=== PATIENT | female | born 1960 | race Caucasian/White ===

== ENCOUNTER 2021-11-17 13:11 | Inpatient (IN) | payer OTHER ==
[2021-11-17 13:30] LABS: Glucose,Whole Blood 127 mg/dL (75-99)
[2021-11-17] MEDS ORDERED: SODIUM CHLORIDE 0.9% 1,000 ML IV STA ×2 (13:57→14:54)
[2021-11-17] MEDS ORDERED: SODIUM CHLORIDE 0.9% 500 ML 500 ML IV ONE (13:57)
--- NOTE | 2021-11-17 14:24 | ED ---
Altered Mental Status HPI - General Chief Complaint: Altered Mental Status Stated Complaint: Dehydration Time Seen by Provider: 11/17/21 13:11 Source: patient, EMS, RN notes reviewed Mode of arrival: EMS Limitations: altered mental status - History of Present Illness Initial Comments: 7-year-old female with history of hypertension history of low back problems who uses a walker who apparently has had a relatively rapid decline in her health the last couple months she used to work and maintain herself she called a neighbor today because she was too weak and could not get up she's had weight loss decreased oral intake dizziness confusion. She apparently was found to be in a very cluttered environment. No reports of fall no fevers chills nausea vo miting sweats at this time there is dizziness reported. MD Complaint: altered mental status, decreased responsiveness - Related Data Home Medications Medication Instructions Recorded Confirmed Unable To Assess [Unable to Assess] 11/17/21 11/17/21 Allergies Allergy/AdvReac Type Severity Reaction Status Date / Time No Known Allergies Allergy Verified 11/17/21 15:00 Review of Systems ROS Statement: Those systems with pertinent positive or pertinent negative responses have been documented in the HPI. ROS Other: All systems not noted in ROS Statement are negative. Past Medical History Past Medical History: Hypertension History of Any Multi-Drug Resistant Organisms: None Reported Past Surgical History: Unable to Obtain Past Psychological History: Anxiety, Depression Smoking Status: Former smoker Past Alcohol Use History: Occasional Past Drug Use History: None Reported General Exam - General Exam Comments Initial Comments: Physical well-developed asthenic appearing female who is awake alert somewhat Limitations: altered mental status General appearance: alert, in no apparent distress Head exam: Present: atraumatic, normocephalic, normal inspection Eye exam: Present: normal appearance, PERRL, EOMI. Absent: scleral icterus, conjunctival injection, periorbital swelling ENT exam: Present: mucous membranes dry Neck exam: Present: normal inspection, full ROM, other (No surgery or bruits). Absent: tenderness, meningismus, lymphadenopathy Respiratory exam: Present: normal lung sounds bilaterally. Absent: respiratory distress, wheezes, rales, rhonchi, stridor Cardiovascular Exam: Present: normal rhythm, tachycardia, normal heart sounds. Absent: systolic murmur, diastolic murmur, rubs, gallop, clicks GI/Abdominal exam: Present: soft, normal bowel sounds. Absent: distended, tenderness, guarding, rebound, rigid Extremities exam: Present: normal inspection, full ROM, normal capillary refill. Absent: tenderness, pedal edema, joint swelling, calf tenderness Back exam: Present: normal inspection Neurological exam: Present: alert, oriented X3, CN II-XII intact Psychiatric exam: Present: flat affect Skin exam: Present: warm, dry, intact, normal color. Absent: rash Course Vital Signs 11/17/21 11/17/21 11/17/21 13:14 14:53 16:00 Temperature 98.1 F Pulse Rate 106 H 121 H 97 Respiratory 16 18 18 Rate Blood Pressure 137/94 100/72 92/79 O2 Sat by Pulse 100 100 97 Oximetry - Reevaluation(s) Reevaluation #1: 11/17/21 17:57 Age does have evidence of sepsis secondary to urinary tract infection dehydration she however is not been hypotensive. She remains awake alert no confused no chest pain lung sounds were diminished but clear at the soft nontender Medical Decision Making - Medical Decision Making I did discuss findings with the patient also with Dr. Babcock - Lab Data Result diagrams: 11/17/21 14:53 11/17/21 14:56 Lab Results 11/17/21 11/17/21 11/17/21 Range/Units 13:28 13:57 14:50 WBC (3.8-10.6) k/uL RBC (3.80-5.40) m/uL Hgb (11.4-16.0) gm/dL Hct (34.0-46.0) % MCV (80.0-100.0) fL MCH (25.0-35.0) pg MCHC (31.0-37.0) g/dL RDW (11.5-15.5) % Plt Count (150-450) k/uL MPV Neutrophils % % Lymphocytes % % Monocytes % % Eosinophils % % Basophils % % Neutrophils # (1.3-7.7) k/uL Lymphocytes # (1.0-4.8) k/uL Monocytes # (0-1.0) k/uL Eosinophils # (0-0.7) k/uL Basophils # (0-0.2) k/uL Manual Slide Review Poikilocytosis (manual Anisocytosis Macrocytosis PT (9.0-12.0) sec INR (<1.2) APTT (22.0-30.0) sec Sodium (137-145) mmol/L Potassium (3.5-5.1) mmol/L Chloride (98-107) mmol/L Carbon Dioxide (22-30) mmol/L Anion Gap mmol/L BUN (7-17) mg/dL Creatinine (0.52-1.04) mg/dL Est GFR (CKD-EPI)AfAm (>60 ml/min/1.73 sqM) Est GFR (CKD-EPI)NonAf (>60 ml/min/1.73 sqM) Glucose (74-99) mg/dL POC Glucose (mg/dL) 127 H (75-99) mg/dL POC Glu [employer]or ID Nadya Martinez Lactic Ac Sepsis Rflx Plasma Lactic Acid Mina (0.7-2.0) mmol/L Calcium (8.4-10.2) mg/dL Total Bilirubin (0.2-1.3) mg/dL AST (14-36) U/L ALT (4-34) U/L Alkaline Phosphatase (38-126) U/L Ammonia (<30) umol/L Creatine Kinase (30-135) U/L Troponin I (0.000-0.034) ng/mL Total Protein (6.3-8.2) g/dL Albumin (3.5-5.0) g/dL TSH (0.465-4.680) mIU/L Urine Color [place] Urine Appearance Cloudy H (Clear) Urine pH 6.0 (5.0-8.0) Ur Specific [place] 1.019 (1.001-1.035) Urine Protein 1+ H (Negative) Urine Glucose (UA) Negative (Negative) Urine Ketones 1+ H (Negative) Urine Blood Negative (Negative) Urine Nitrite Negative (Negative) Urine Bilirubin 1+ H (Negative) Urine Urobilinogen 12.0 (<2.0) mg/dL Ur Leukocyte Esterase Large H (Negative) Urine RBC 1 (0-5) /hpf Urine WBC 59 H (0-5) /hpf Ur Squamous Epith Cells 1 (0-4) /hpf Urine Bacteria Many H (None) /hpf Urine Mucus Rare H (None) /hpf Urine Opiates Screen Not Detected (NotDetected) Ur Oxycodone Screen Not Detected (NotDetected) Urine Methadone Screen Not Detected (NotDetected) Ur Propoxyphene Screen Not Detected (NotDetected) Ur Barbiturates Screen Not Detected (NotDetected) U Tricyclic Antidepress Not Detected (NotDetected) Ur Phencyclidine Scrn Not Detected (NotDetected) Ur Amphetamines Screen Not Detected (NotDetected) U Methamphetamines Scrn Not Detected (NotDetected) U Benzodiazepines Scrn Not Detected (NotDetected) Urine Cocaine Screen Not Detected (NotDetected) U Marijuana (THC) Screen Not Detected (NotDetected) Serum Alcohol mg/dL Influenza Type A (PCR) Not Detected (Not Detectd) Influenza Type B (PCR) Not Detected (Not Detectd) RSV (PCR) Not Detected (Not Detectd) SARS-CoV-2 (PCR) Not Detected (Not Detectd) 11/17/21 11/17/21 11/17/21 Range/Units 14:53 14:53 14:53 WBC 20.5 H (3.8-10.6) k/uL RBC 3.42 L (3.80-5.40) m/uL Hgb 13.8 (11.4-16.0) gm/dL Hct 41.2 (34.0-46.0) % MCV 120.4 H (80.0-100.0) fL MCH 40.3 H (25.0-35.0) pg MCHC 33.5 (31.0-37.0) g/dL RDW 17.8 H (11.5-15.5) % Plt Count 357 (150-450) k/uL MPV 7.4 Neutrophils % 89 % Lymphocytes % 6 % Monocytes % 4 % Eosinophils % 1 % Basophils % 0 % Neutrophils # 18.2 H (1.3-7.7) k/uL Lymphocytes # 1.1 (1.0-4.8) k/uL Monocytes # 0.8 (0-1.0) k/uL Eosinophils # 0.1 (0-0.7) k/uL Basophils # 0.0 (0-0.2) k/uL Manual Slide Review Performed Poikilocytosis (manual Present Anisocytosis Slight Macrocytosis Marked A PT 12.3 H (9.0-12.0) sec INR 1.2 H (<1.2) APTT 24.4 (22.0-30.0) sec Sodium (137-145) mmol/L Potassium (3.5-5.1) mmol/L Chloride (98-107) mmol/L Carbon Dioxide (22-30) mmol/L Anion Gap mmol/L BUN (7-17) mg/dL Creatinine (0.52-1.04) mg/dL Est GFR (CKD-EPI)AfAm (>60 ml/min/1.73 sqM) Est GFR (CKD-EPI)NonAf (>60 ml/min/1.73 sqM) Glucose (74-99) mg/dL POC Glucose (mg/dL) (75-99) mg/dL POC Glu [employer]or ID Lactic Ac Sepsis Rflx Plasma Lactic Acid Mina (0.7-2.0) mmol/L Calcium (8.4-10.2) mg/dL Total Bilirubin (0.2-1.3) mg/dL AST (14-36) U/L ALT (4-34) U/L Alkaline Phosphatase (38-126) U/L Ammonia (<30) umol/L Creatine Kinase (30-135) U/L Troponin I 0.022 (0.000-0.034) ng/mL Total Protein (6.3-8.2) g/dL Albumin (3.5-5.0) g/dL TSH (0.465-4.680) mIU/L Urine Color Urine Appearance (Clear) Urine pH (5.0-8.0) Ur Specific [place] (1.001-1.035) Urine Protein (Negative) Urine Glucose (UA) (Negative) Urine Ketones (Negative) Urine Blood (Negative) Urine Nitrite (Negative) Urine Bilirubin (Negative) Urine Urobilinogen (<2.0) mg/dL Ur Leukocyte Esterase (Negative) Urine RBC (0-5) /hpf Urine WBC (0-5) /hpf Ur Squamous Epith Cells (0-4) /hpf Urine Bacteria (None) /hpf Urine Mucus (None) /hpf Urine Opiates Screen (NotDetected) Ur Oxycodone Screen (NotDetected) Urine Methadone Screen (NotDetected) Ur Propoxyphene Screen (NotDetected) Ur Barbiturates Screen (NotDetected) U Tricyclic Antidepress (NotDetected) Ur Phencyclidine Scrn (NotDetected) Ur Amphetamines Screen (NotDetected) U Methamphetamines Scrn (NotDetected) U Benzodiazepines Scrn (NotDetected) Urine Cocaine Screen (NotDetected) U Marijuana (THC) Screen (NotDetected) Serum Alcohol mg/dL Influenza Type A (PCR) (Not Detectd) Influenza Type B (PCR) (Not Detectd) RSV (PCR) (Not Detectd) SARS-CoV-2 (PCR) (Not Detectd) 11/17/21 11/17/21 11/17/21 Range/Units 14:56 14:56 15:36 WBC (3.8-10.6) k/uL RBC (3.80-5.40) m/uL Hgb (11.4-16.0) gm/dL Hct (34.0-46.0) % MCV (80.0-100.0) fL MCH (25.0-35.0) pg MCHC (31.0-37.0) g/dL RDW (11.5-15.5) % Plt Count (150-450) k/uL MPV Neutrophils % % Lymphocytes % % Monocytes % % Eosinophils % % Basophils % % Neutrophils # (1.3-7.7) k/uL Lymphocytes # (1.0-4.8) k/uL Monocytes # (0-1.0) k/uL Eosinophils # (0-0.7) k/uL Basophils # (0-0.2) k/uL Manual Slide Review Poikilocytosis (manual Anisocytosis Macrocytosis PT (9.0-12.0) sec INR (<1.2) APTT (22.0-30.0) sec Sodium 144 (137-145) mmol/L Potassium 3.0 L (3.5-5.1) mmol/L Chloride 106 (98-107) mmol/L Carbon Dioxide 15 L (22-30) mmol/L Anion Gap 23 mmol/L BUN 24 H (7-17) mg/dL Creatinine 0.87 (0.52-1.04) mg/dL Est GFR (CKD-EPI)AfAm 84 (>60 ml/min/1.73 sqM) Est GFR (CKD-EPI)NonAf 73 (>60 ml/min/1.73 sqM) Glucose 125 H (74-99) mg/dL POC Glucose (mg/dL) (75-99) mg/dL POC Glu [employer]or ID Lactic Ac Sepsis Rflx Y Plasma Lactic Acid Mina 4.8 H* (0.7-2.0) mmol/L Calcium 9.0 (8.4-10.2) mg/dL Total Bilirubin 2.8 H (0.2-1.3) mg/dL AST 55 H (14-36) U/L ALT 33 (4-34) U/L Alkaline Phosphatase 115 (38-126) U/L Ammonia <9 (<30) umol/L Creatine Kinase 41 (30-135) U/L Troponin I (0.000-0.034) ng/mL Total Protein 7.9 (6.3-8.2) g/dL Albumin 4.0 (3.5-5.0) g/dL TSH 1.600 (0.465-4.680) mIU/L Urine Color Urine Appearance (Clear) Urine pH (5.0-8.0) Ur Specific [place] (1.001-1.035) Urine Protein (Negative) Urine Glucose (UA) (Negative) Urine Ketones (Negative) Urine Blood (Negative) Urine Nitrite (Negative) Urine Bilirubin (Negative) Urine Urobilinogen (<2.0) mg/dL Ur Leukocyte Esterase (Negative) Urine RBC (0-5) /hpf Urine WBC (0-5) /hpf Ur Squamous Epith Cells (0-4) /hpf Urine Bacteria (None) /hpf Urine Mucus (None) /hpf Urine Opiates Screen (NotDetected) Ur Oxycodone Screen (NotDetected) Urine Methadone Screen (NotDetected) Ur Propoxyphene Screen (NotDetected) Ur Barbiturates Screen (NotDetected) U Tricyclic Antidepress (NotDetected) Ur Phencyclidine Scrn (NotDetected) Ur Amphetamines Screen (NotDetected) U Methamphetamines Scrn (NotDetected) U Benzodiazepines Scrn (NotDetected) Urine Cocaine Screen (NotDetected) U Marijuana (THC) Screen (NotDetected) Serum Alcohol <10 mg/dL Influenza Type A (PCR) (Not Detectd) Influenza Type B (PCR) (Not Detectd) RSV (PCR) (Not Detectd) SARS-CoV-2 (PCR) (Not Detectd) - EKG Data -: EKG Interpreted by Me EKG shows normal: sinus rhythm EKG Comments: Sinus rhythm 111 CA interval 148 QRS duration 81 QT since QTC 370/435 nonspecific inferior changes no definitive ST-T wave changes wheezing completely report - Radiology Data Radiology results: report reviewed (Imaging reviewed no acute findings.), image reviewed Disposition Clinical Impression: Altered mental status, Delirium due to general medical condition, Urinary tract infection, Lactic acidosis, Sepsis, Failure to thrive, Leukocytosis Disposition: ADMITTED IP TO THIS HOSP Condition: Fair Referrals: None,Stated [Primary Care Provider] - 1-2 days
[2021-11-17 14:52] LABS: Appearance,Urine Cloudy (Clear); Bacteria,Urine Many /hpf; Bilirubin,Urine 1+ (Negative); Blood,Urine Negative (Negative); Color,Urine Orange; Glucose,Urine (UA) Negative (Negative); Ketones,Urine 1+ (Negative); Leukocyte Esterase,Urine Large (Negative); Mucus,Urine Rare /hpf; Nitrite,Urine Negative (Negative); Protein,Urine 1+ (Negative); RBC,Urine 1 /hpf (0-5); Specific Gravity,Urine 1.019 (1.001-1.035); Squamous Epithelial Cell,Urine 1 /hpf (0-4); WBC,Urine 59 /hpf (0-5)
[2021-11-17 15:00] LABS: Amphetamine Screen,Urine Not Detected (NotDetected); Barbiturate Screen,Urine Not Detected (NotDetected); Benzodiazepines Screen,Urine Not Detected (NotDetected); Cocaine Screen,Urine Not Detected (NotDetected); Methadone Screen, Urine Not Detected (NotDetected); Opiate Screen,Urine Not Detected (NotDetected); Oxycodone Screen, Urine Not Detected (NotDetected); Phencyclidine Screen,Urine Not Detected (NotDetected); Tricyclic Antidepressant,Urine Not Detected (NotDetected); Urn Cannabinoid Scrn Not Detected (NotDetected)
[2021-11-17 15:16] LABS: Anisocytosis Slight; Basophils % (A) 0 %; Eosinophils # (A) 0.1 k/uL (0-0.7); Eosinophils % (A) 1 %; HCT 41.2 % (34.0-46.0); HGB 13.8 gm/dL (11.4-16.0); Lymphocytes # (A) 1.1 k/uL (1.0-4.8); Lymphocytes % (A) 6 %; MCH 40.3 pg (25.0-35.0); MCHC 33.5 g/dL (31.0-37.0); MCV 120.4 fL (80.0-100.0); Macrocytosis Marked; Mean Platelet Volume 7.4; Monocytes # (A) 0.8 k/uL (0-1.0); Monocytes % (A) 4 %; Neutrophils # (A) 18.2 k/uL (1.3-7.7); Neutrophils % (A) 89 %; Platelet Count 357 k/uL (150-450); RBC 3.42 m/uL (3.80-5.40); RDW 17.8 % (11.5-15.5); WBC 20.5 k/uL (3.8-10.6)
[2021-11-17 15:29] LABS: INR 1.2 (<1.2); Partial Thromboplastin Time 24.4 sec (22.0-30.0); Prothrombin Time 12.3 sec (9.0-12.0)
[2021-11-17 15:32] LABS: ALT 33 U/L (4-34); AST 55 U/L (14-36); African American GFR (CKD) 84 (>60 ml/min/1.73 sqM); Alcohol <10 mg/dL; Alkaline Phosphatase 115 U/L (38-126); Anion Gap 23 mmol/L; Blood Urea Nitrogen 24 mg/dL (7-17); Carbon Dioxide 15 mmol/L (22-30); Chloride 106 mmol/L (98-107); Creatine Kinase 41 U/L (30-135); Glucose 125 mg/dL (74-99); Non-African American GFR(CKD) 73 (>60 ml/min/1.73 sqM); Sodium 144 mmol/L (137-145); Total Bilirubin 2.8 mg/dL (0.2-1.3); Total Protein 7.9 g/dL (6.3-8.2)
--- NOTE | 2021-11-17 15:34 | CT ---
EXAMINATION TYPE: CT brain wo con DATE OF EXAM: 11/17/2021 HISTORY: ams and weakness. CT DLP: 1114.4 mGycm. Automated Exposure Control for Dose Reduction was Utilized. TECHNIQUE: CT scan of the head is performed without contrast. COMPARISON: None. FINDINGS: There is no acute intracranial hemorrhage or midline shift identified. There is mild to m oderate diffuse ventricular and sulcal prominence consistent with diffuse age-related cerebral atroph y. There is mild to moderate low-attenuation in the periventricular white matter consistent with chr onic small vessel ischemic change. The globes are intact and the visualized sinuses are clear. IMPRESSION: No acute intracranial hemorrhage or midline shift. There is mild to moderate diffuse ag e-related cerebral atrophy and chronic small vessel ischemic change noted.
[2021-11-17 15:36] LABS: Lactic Acid, Venous 4.8 mmol/L (0.7-2.0)
--- NOTE | 2021-11-17 15:44 | XR ---
EXAMINATION TYPE: XR chest 2V DATE OF EXAM: 11/17/2021 COMPARISON: None HISTORY: Mental status change TECHNIQUE: Frontal and lateral views of the chest are obtained. FINDINGS: There is no focal air space opacity, pleural effusion, or pneumothorax seen. The cardiac silhouette size is within normal limits. The osseous structures are intact. IMPRESSION: No acute cardiopulmonary process.
[2021-11-17] MEDS ORDERED: cefTRIAXone IN SWFI 1,000 MG/10 ML SYRINGE IVP STA (16:07)
[2021-11-17 16:28] LABS: Poikilocytosis (M) Present
[2021-11-17] MEDS ORDERED: NALOXONE 0.4 MG/ML 1 ML VIAL IV PRN (17:59)
[2021-11-17] MEDS ORDERED: POTASSIUM CHLORIDE 20 MEQ in WATER FOR INJECTION 1 100ML.BAG IVPB STA (18:01)
[2021-11-17] MEDS ORDERED: ONDANSETRON 4 MG/2 ML VIAL IVP PRN (18:29)
[2021-11-17] MEDS ORDERED: MELATONIN 3 MG TABLET PO PRN (18:29)
[2021-11-17] MEDS ORDERED: HYDROcodone/APAP 5-325MG 1 EACH TAB PO PRN (18:29)
--- NOTE | 2021-11-17 18:29 | P.HPIM ---
History of Present Illness H&P Date: 11/17/21 Chief Complaint: Sepsis Patient is a 61-year-old female with an uncertain past medical history was brought in by EMS for altered mentation. In the ER she underwent an extensive evaluation. On arrival she was tachycardic with a pulse of 106. White blood cell count 20.5, potassium 3, lactic acid 4.8, bilirubin 2.8, AST 55, anion gap 23 with a carbon dioxide of 15. Urinalysis was cloudy with 59 white blood cells. Influenza, RSV, and COVID-19 testing was negative. Urine drug screen and serum alcohol is negative. CT head shows no acute intracranial hemorrhage or midline shift with mild to moderate diffuse age-related cerebral atrophy. Chest x-ray revealed no acute process. She was started on Rocephin for possible urinary tract infection as well as IV fluids. Patient seen and examined at bedside. She is alert to self. She is aware that she cannot think and is having problems processing. She states that she hurt her hand at work but is unsure what he had before when it occurred. She has been taking pain pills that she is unsure which kind. She is unsure of her medical history but does know she had 2 C-sections. She thinks she may be ALLERGIC to something in the distant past but is unsure what. She did not remember coming in EMS. She thought she walked over from her work. 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 States that she used to drink but quit a couple of years ago. Unable to obtain review of systems secondary altered mentation. General: non toxic, no distress, appears older than stated age, cachectic, temporal and buccal wasting, malodorous Derm: Errythema wuitcreciptus of coccyx and to the right, ecchymosis of left elbow, mottling of bilateral upper extremities Head: atraumatic, normocephalic, symmetric Eyes: EOMI, no lid lag, anicteric sclera, pupils equal round reactive to light ENT: Nose and ears atraumatic, no thrush, no pharyngeal erythema Neck: No thyromegaly, no cervical lymphadenopathy, trachea midline, supple Mouth: no lip lesion, mucus membranes moist Cardiovascular: S1S2 reg, no murmur, positive posterior tibial pulse bilateral, no edema, capillary refill less than 2 seconds Lungs: Coarse breath sounds bilateral, no ronchi, no rales, no wheeze, no accessory muscle use Abdominal: soft, nontender to palpation, no guarding, no appreciable organomegaly, normal bowel sounds Ext: no gross muscle atrophy, muscle strength muscle strength 5 out of 5 in all 4 extremities, no contractures Neuro: CN II-XI grossly intact, light touch intact all 4 extremities, finger to nose within normal limits, Psych: Alert, oriented to self only, appropriate affect Assessment/plan: Severe Sepsis Possible urinary tract infection Stage II pressure ulcer of the coccyx, with drainage and surrounding cellulitis Dehydration - IVF - broaded to zosyn and vanvo - stat ct pelvis with concerns of crepitus - blooc culture and wound cultures pending Hypokalemia - replace and recheck in AM Transaminitis - CT abd and pelvis - repeat labs in AM Acute toxic encephalopathy - undetermined etiology - supportive care - treatment of sepsis The patient is admitted with an anticipated greater than 2 midnight stay for evaluation of sepsis and altered mentation. Surrogate decision-maker: Son-- ED nursing unable to get ahold CODE STATUS: full by default DVT prophylaxis: Lovenox Discussed with: patient, nursing unable to get ahold of family Anticipated discharge date: in 5-[address]: unknown A total of 65 minutes was spent on the care of this complex patient more than 50% of the time was spent in counseling and care coordination. Past Medical History Past Medical History: Hypertension History of Any Multi-Drug Resistant Organisms: None Reported Past Surgical History: Unable to Obtain Past Psychological History: Anxiety, Depression Smoking Status: Former smoker Past Alcohol Use History: Occasional Past Drug Use History: None Reported Medications and Allergies Home Medications Medication Instructions Recorded Confirmed Type Unable To Assess [Unable to Assess] 11/17/21 11/17/21 History Allergies Allergy/AdvReac Type Severity Reaction Status Date / Time No Known Allergies Allergy Verified 11/17/21 15:00 Physical Exam Osteopathic Statement: *. No significant issues noted on an osteopathic structural exam other than those noted in the History and Physical/Consult. Vitals: Vital Signs Temp Pulse Resp BP Pulse Ox 11/17/21 16:00 97 18 92/79 97 11/17/21 14:53 121 H 18 100/72 100 11/17/21 13:14 98.1 F 106 H 16 137/94 100 Intake and Output 11/17/21 11/17/2122 06:59 14:59 22:59 Other: Weight 50.349 kg Results CBC & Chem 7: 11/17/21 14:53 11/17/21 14:56 Labs: Abnormal Lab Results - Last 24 Hours (Table) 11/17/21 11/17/21 11/17/21 Range/Units 13:28 13:57 14:53 WBC 20.5 H (3.8-10.6) k/uL RBC 3.42 L (3.80-5.40) m/uL MCV 120.4 H (80.0-100.0) fL MCH 40.3 H (25.0-35.0) pg RDW 17.8 H (11.5-15.5) % Neutrophils # 18.2 H (1.3-7.7) k/uL Macrocytosis Marked A PT (9.0-12.0) sec INR (<1.2) Potassium (3.5-5.1) mmol/L Carbon Dioxide (22-30) mmol/L BUN (7-17) mg/dL Glucose (74-99) mg/dL POC Glucose (mg/dL) 127 H (75-99) mg/dL Plasma Lactic Acid Mina (0.7-2.0) mmol/L Total Bilirubin (0.2-1.3) mg/dL AST (14-36) U/L Urine Appearance Cloudy H (Clear) Urine Protein 1+ H (Negative) Urine Ketones 1+ H (Negative) Urine Bilirubin 1+ H (Negative) Ur Leukocyte Esterase Large H (Negative) Urine WBC 59 H (0-5) /hpf Urine Bacteria Many H (None) /hpf Urine Mucus Rare H (None) /hpf 11/17/21 11/17/21 11/17/21 Range/Units 14:53 14:56 14:56 WBC (3.8-10.6) k/uL RBC (3.80-5.40) m/uL MCV (80.0-100.0) fL MCH (25.0-35.0) pg RDW (11.5-15.5) % Neutrophils # (1.3-7.7) k/uL Macrocytosis PT 12.3 H (9.0-12.0) sec INR 1.2 H (<1.2) Potassium 3.0 L (3.5-5.1) mmol/L Carbon Dioxide 15 L (22-30) mmol/L BUN 24 H (7-17) mg/dL Glucose 125 H (74-99) mg/dL POC Glucose (mg/dL) (75-99) mg/dL Plasma Lactic Acid Mina 4.8 H* (0.7-2.0) mmol/L Total Bilirubin 2.8 H (0.2-1.3) mg/dL AST 55 H (14-36) U/L Urine Appearance (Clear) Urine Protein (Negative) Urine Ketones (Negative) Urine Bilirubin (Negative) Ur Leukocyte Esterase (Negative) Urine WBC (0-5) /hpf Urine Bacteria (None) /hpf Urine Mucus (None) /hpf
--- NOTE | 2021-11-17 18:36 | CT ---
EXAMINATION TYPE: CT abdomen pelvis wo con DATE OF EXAM: 11/17/2021 COMPARISON: None HISTORY: coccyx wound CT DLP: 365.1 mGycm Automated exposure control for dose reduction was used. Images obtained from the diaphragm to the floor the pelvis without contrast. There is some mild atelectasis at the left lung base. Heart size is normal. There is mild pectus exca vatum chest deformity. No pleural effusion. Liver spleen and stomach pancreas appear intact. The bile ducts are not dilated. Gallbladder is intac t. There is no adrenal mass. Kidneys have normal size. No hydronephrosis. There is 3 mm calculus upper p ole left kidney. Ureters are not dilated. There is no retroperitoneal adenopathy. There is Gudino cath eter in urinary bladder. Bladder is empty. There is no inguinal hernia. There is dilated gas filled r ectum. Uterus is anteverted. No pelvic mass. Lumbar vertebrae have normal alignment. There is degener ative disc space narrowing at L4-5 with spur formation. No compression fracture. There are numerous s igmoid diverticula. No diverticulitis. No evidence of free air. No ascites. There is no mesenteric ed geovanny. No evidence of a bowel obstruction. There is increased soft tissue density in the gluteal cleft in the skin surface and extending to the posterior coccyx. This measures 7 cm in length. No focal bone destruction. IMPRESSION: Inflammatory changes in the subcutaneous tissues over the coccyx. No drainable fluid collection. No e vidence of osteomyelitis. No acute abnormality within the abdomen pelvis. Mild subsegmental atelectasis left lung base.
[2021-11-17] MEDS: SODIUM CHLORIDE 0.9% 1,000 ML IV SCH (18:42)
[2021-11-17] MEDS: PIPERACILLIN-TAZOBACTAM 3.375 GM in SODIUM CHLORIDE 0.9% 100 ML IVPB SCH (20:52)
[2021-11-18] MEDS: SODIUM CHLORIDE 0.9% 1,000 ML IV SCH ×3 (04:53→21:32)
[2021-11-18] MEDS: PIPERACILLIN-TAZOBACTAM 3.375 GM in SODIUM CHLORIDE 0.9% 100 ML IVPB SCH ×3 (05:17→20:27)
[2021-11-18 05:55] LABS: Anisocytosis Slight; HCT 35.3 % (34.0-46.0); HGB 11.5 gm/dL (11.4-16.0); MCHC 32.5 g/dL (31.0-37.0); Macrocytosis Marked; Platelet Count 261 k/uL (150-450); RBC 2.86 m/uL (3.80-5.40); RDW 17.6 % (11.5-15.5); WBC 12.3 k/uL (3.8-10.6)
[2021-11-18 05:57] LABS: INR 1.2 (<1.2); Prothrombin Time 12.9 sec (9.0-12.0)
[2021-11-18 05:58] LABS: MCV 123.4 fL (80.0-100.0)
[2021-11-18 06:39] LABS: ALT 24 U/L (4-34); AST 40 U/L (14-36); African American GFR (CKD) >90 (>60 ml/min/1.73 sqM); Albumin 2.8 g/dL (3.5-5.0); Albumin/Globulin Ratio 0.8; Alkaline Phosphatase 84 U/L (38-126); Anion Gap 15 mmol/L; Blood Urea Nitrogen 13 mg/dL (7-17); Calcium 7.2 mg/dL (8.4-10.2); Carbon Dioxide 16 mmol/L (22-30); Chloride 111 mmol/L (98-107); Globulin 3.3 g/dL; Glucose 72 mg/dL (74-99); Magnesium 1.4 mg/dL (1.6-2.3); Non-African American GFR(CKD) >90 (>60 ml/min/1.73 sqM); Phosphorus 3.1 mg/dL (2.5-4.5); Sodium 142 mmol/L (137-145); Total Bilirubin 1.5 mg/dL (0.2-1.3); Total Protein 6.1 g/dL (6.3-8.2)
[2021-11-18 06:50] LABS: Potassium 2.7 mmol/L (3.5-5.1)
[2021-11-18] MEDS ORDERED: POTASSIUM BICARBONATE/CIT AC 20 MEQ TABLET.EFF PO ONE ×2 (07:56→18:31)
[2021-11-18] MEDS ORDERED: POTASSIUM CHLORIDE 20 MEQ in WATER FOR INJECTION 1 100ML.BAG IVPB STA (07:56)
[2021-11-18] MEDS: ENOXAPARIN 40 MG/0.4 ML SYRINGE SQ SCH (10:07)
[2021-11-18] MEDS: MAGNESIUM SULFATE-D5W PMX 1 GM in DEXTROSE/WATER 1 100ML.BAG IVPB SCH ×4 (10:12→14:31)
[2021-11-18] MEDS: FOLIC ACID 1 MG TAB PO SCH (13:08)
[2021-11-18] MEDS: MULTIVITAMINS, THERA 1 EACH TAB PO SCH (13:08)
[2021-11-18 14:00] VITALS: BMI 19.0
[2021-11-18] MEDS: THIAMINE 100 MG/ML 2 ML VIAL IVP SCH ×2 (14:24→20:27)
[2021-11-18 15:25] LABS: Potassium 3.1 mmol/L (3.5-5.1)
--- NOTE | 2021-11-18 15:56 | P.PN ---
Subjective Progress Note Date: 11/18/21 (delayed charting seen at 11) Principal diagnosis: sepsis Patient is a 61-year-old female with an uncertain past medical history was brought in by EMS for altered mentation. Neighbors called for a well check due to the odor coming from her apartment in her not having been outside in months as well as her not having been to work and months. On arrival EMS, fired, and she was found the apartment to be in disarray and had 2 shoulder weights the patient due to 2-3 feet of garbage. They did find him a seated. In the ER she underwent an extensive evaluation. On arrival she was tachycardic with a pulse of 106. White blood cell count 20.5, potassium 3, lactic acid 4.8, bilirubin 2.8, AST 55, anion gap 23 with a carbon dioxide of 15. Urinalysis was cloudy with 59 white blood cells. Influenza, RSV, and COVID-19 testing was negative. Urine drug screen and serum alcohol is negative. CT head shows no acute intracranial hemorrhage or midline shift with mild to moderate diffuse age- related cerebral atrophy. Chest x-ray revealed no acute process. She was started on Rocephin for possible urinary tract infection as well as IV fluids. Patient seen and examined at bedside. She is more alert today. She believes it is 2012 but is aware she is hospital [facility]. She thinks the hospital is [facility]. She is able to tell me that several days ago at home she wasn't feeling good but there is a lot of people around that weren't there. She does tell me that she drinks copious amounts of alcohol at times, however she is unable to tell me how often this occurs. She denies any chest pain or shortness of breath. We discussed that we found a urinary tract infection as well as an ulcer in her coccyx area with some surrounding cellulitis. General: non toxic, no distress, appears older than stated age, temporal and buccal wasting, malodorous, disheveled Derm: warm, dry Head: atraumatic, normocephalic, symmetric Eyes: EOMI, no lid lag, anicteric sclera Mouth: no lip lesion, mucus membranes moist Cardiovascular: S1S2 reg, no murmur, positive posterior tibial pulse bilateral, Lungs: Coarse breath sounds bilateral, no rhonchi, no rales , no accessory muscle use Abdominal: soft, nontender to palpation, no guarding, no appreciable organomegaly Ext: no gross muscle atrophy, no edema, no contractures Neuro: CN II-XI grossly intact, no focal neuro deficits Psych: Alert, oriented to self and hospital, affect transition from normal to upset to agitated. Assessment/plan: Severe Sepsis Possible urinary tract infection Stage II pressure ulcer of the coccyx, with drainage and surrounding cellulitis Dehydration - IVF - zosyn and vanvo - blood culture and urine cultures pending - off load and barrier cream Hypokalemia, hypomagnesemia - replace and recheck Transaminitis - suspect alcoholi hepatitis - repeat labs in AM Acute toxic encephalopathy ETOH misuse - undetermined etiology - supportive care - treatment of sepsis - thiamine and foliac aid, MVI - no ativan at this time. - concern for korsakoff. consult neurology Severe protein calorie malnutrition -Dietary consultation -Ensure Social Stressors - per nursing house has been condemned and patient cannot return. DVT prophylaxis: Lovenox Discussed with: Patient, nursing Anticipated discharge: pending clinical course Anticipated discharge place: undetemrined A total of 40 minutes was spent on the care of this complex patient more than 50 % of the time was spent in counseling and care coordination. Objective - Vital Signs Vital signs: Vital Signs Temp 98.4 F 11/18/21 14:00 Pulse 90 11/18/21 14:00 Resp 18 11/18/21 14:00 BP 111/76 11/18/21 14:00 Pulse Ox 98 11/18/21 14:00 Intake & Output 11/17/21 11/18/21 11/18/21 18:59 06:59 18:59 Intake Total 1670 Output Total 850 Balance 820 Weight 50.349 kg 50.349 kg Intake: Intake, IV Titration 1470 Amount Piperacillin-Tazobactam 3 200 .375 gm In Sodium Chloride 0.9% 100 ml @ 25 mls/hr IVPB Q8H [facility] Rx#: [id number] Sodium Chloride 0.9% 1, 1170 000 ml @ 130 mls/hr IV . Q7H42M [facility] Rx#:[id number] cefTRIAXone 1 gm In 100 Sodium Chloride 0.9% 50 ml @ 100 mls/hr IVPB Q24H [facility] Rx#:[id number] Oral 200 Output: Urine 850 Other: Voiding Method Indwelling Catheter Indwelling Catheter - Labs CBC & Chem 7: 11/18/21 05:29 11/18/21 14:33 Labs: Abnormal Lab Results - Last 24 Hours (Table) 11/17/21 11/18/21 11/18/21 Range/Units 14:53 05:29 05:29 WBC 12.3 H (3.8-10.6) k/uL RBC 2.86 L (3.80-5.40) m/uL MCV 123.4 H (80.0-100.0) fL MCH 40.0 H (25.0-35.0) pg RDW 17.6 H (11.5-15.5) % Neutrophils # 18.2 H (1.3-7.7) k/uL Macrocytosis Marked A PT 12.9 H (9.0-12.0) sec INR 1.2 H (<1.2) Potassium (3.5-5.1) mmol/L Chloride (98-107) mmol/L Carbon Dioxide (22-30) mmol/L Glucose (74-99) mg/dL Calcium (8.4-10.2) mg/dL Magnesium (1.6-2.3) mg/dL Total Bilirubin (0.2-1.3) mg/dL AST (14-36) U/L Total Protein (6.3-8.2) g/dL Albumin (3.5-5.0) g/dL 11/18/21 11/18/21 Range/Units 05:29 14:33 WBC (3.8-10.6) k/uL RBC (3.80-5.40) m/uL MCV (80.0-100.0) fL MCH (25.0-35.0) pg RDW (11.5-15.5) % Neutrophils # (1.3-7.7) k/uL Macrocytosis PT (9.0-12.0) sec INR (<1.2) Potassium 2.7 L* 3.1 L (3.5-5.1) mmol/L Chloride 111 H 109 H (98-107) mmol/L Carbon Dioxide 16 L 19 L (22-30) mmol/L Glucose 72 L (74-99) mg/dL Calcium 7.2 L (8.4-10.2) mg/dL Magnesium 1.4 L (1.6-2.3) mg/dL Total Bilirubin 1.5 H (0.2-1.3) mg/dL AST 40 H (14-36) U/L Total Protein 6.1 L (6.3-8.2) g/dL Albumin 2.8 L (3.5-5.0) g/dL Microbiology - Last 24 Hours (Table) 11/17/21 13:57 Urine Culture - Preliminary Urine,Voided
[2021-11-18] MEDS: LORazepam 2 MG/ML INJ IV PRN (16:37)
[2021-11-18] MEDS ORDERED: POTASSIUM CHLORIDE ER 20 MEQ TAB.ER PO ONE (20:30)
[2021-11-19] MEDS: PIPERACILLIN-TAZOBACTAM 3.375 GM in SODIUM CHLORIDE 0.9% 100 ML IVPB SCH ×3 (04:34→20:07)
[2021-11-19] MEDS: SODIUM CHLORIDE 0.9% 1,000 ML IV SCH ×3 (06:19→15:18)
[2021-11-19 06:48] LABS: Anisocytosis Slight; HCT 35.7 % (34.0-46.0); HGB 11.4 gm/dL (11.4-16.0); MCH 39.6 pg (25.0-35.0); MCHC 32.1 g/dL (31.0-37.0); MCV 123.4 fL (80.0-100.0); Mean Platelet Volume 7.5; Platelet Count 203 k/uL (150-450); RBC 2.89 m/uL (3.80-5.40); RDW 16.3 % (11.5-15.5); WBC 7.8 k/uL (3.8-10.6)
[2021-11-19 06:53] LABS: Macrocytosis Marked
[2021-11-19 07:05] LABS: ALT 22 U/L (4-34); AST 43 U/L (14-36); African American GFR (CKD) >90 (>60 ml/min/1.73 sqM); Albumin 2.4 g/dL (3.5-5.0); Albumin/Globulin Ratio 0.8; Alkaline Phosphatase 78 U/L (38-126); Anion Gap 9 mmol/L; Blood Urea Nitrogen 3 mg/dL (7-17); Carbon Dioxide 19 mmol/L (22-30); Chloride 110 mmol/L (98-107); Globulin 3.1 g/dL; Glucose 66 mg/dL (74-99); Magnesium 1.7 mg/dL (1.6-2.3); Non-African American GFR(CKD) >90 (>60 ml/min/1.73 sqM); Phosphorus 2.6 mg/dL (2.5-4.5); Potassium 3.7 mmol/L (3.5-5.1); Sodium 138 mmol/L (137-145); Total Bilirubin 1.2 mg/dL (0.2-1.3); Total Protein 5.5 g/dL (6.3-8.2)
[2021-11-19] MEDS: MULTIVITAMINS, THERA 1 EACH TAB PO SCH (07:34)
[2021-11-19] MEDS: FOLIC ACID 1 MG TAB PO SCH (07:34)
[2021-11-19] MEDS: THIAMINE 100 MG/ML 2 ML VIAL IVP SCH ×2 (07:34→22:09)
[2021-11-19] MEDS: ACETAMINOPHEN TAB 325 MG TAB PO PRN (07:45)
[2021-11-19] MEDS: ENOXAPARIN 40 MG/0.4 ML SYRINGE SQ SCH (09:16)
--- NOTE | 2021-11-19 14:00 | P.CNNES ---
History of Present Illness Consult date: 11/19/21 Reason for Consult: memory loss, possible Korsakoff syndrome History of Present Illness: The patient is a 61-year-old, right-handed female who is seen in neurologic consultation on November 19, 2021, via teleneurology. The patient is being seen because of acute mental status changes and concern for possible Korsakoff syndrome. History is obtained entirely from the chart. The patient is unable to tell me why she is in the hospital. She is not even sure, at all times, where she is. According to the history and physical, police were sent to the patient's apartment for a well check. It is reported that neighbors noted a foul smell co bertram from the patient's apartment. In addition, she had not been seen for a few months, had not left her apartment and had not gone to work. In the emergency department, the patient had extensive workup. She was found to have a urinary tract infection, with leukocytosis. She was also noted to be tachycardic. CT scan of the brain was negative for acute hemorrhage and infarct. The patient herself reports that she has "had a hard time with several things". She reports low back pain and pain in her feet. She also reports blurred vision. The patient denies difficulty swallowing. She reports generalized weakness. She volunteers that "I'm a drinker". She says that there are occasions when she drinks "way too much". Past Medical History Past Medical History: Hypertension History of Any Multi-Drug Resistant Organisms: None Reported Past Surgical History: Unable to Obtain Past Psychological History: Anxiety, Depression Smoking Status: Never smoker Past Alcohol Use History: Heavy - Past Family History Father Family Medical History: Unable to Obtain Medications and Allergies Home Medications Medication Instructions Recorded Confirmed Type Unable To Assess [Unable to Assess] 11/17/21 11/17/21 History Allergies Allergy/AdvReac Type Severity Reaction Status Date / Time No Known Allergies Allergy Verified 11/17/21 15:00 Physical Examination - Vital Signs Vital Signs: Vital Signs Temp Pulse Resp BP Pulse Ox 11/19/21 07:31 97.5 F L 83 20 117/83 94 L 11/19/21 02:32 97.5 F L 72 16 100/66 98 11/18/21 19:17 97.8 F 72 14 99/64 98 11/18/21 16:26 75 100/66 100 11/18/21 14:00 98.4 F 90 18 111/76 98 Intake and Output 11/18/21 11/19/21 11/19/21 22:59 06:59 14:59 Intake Total 1560 500 Output Total 800 Balance 1560 -300 Intake: IV 1560 Sodium Chloride 0.9% 1, 1560 000 ml @ 130 mls/hr IV . Q7H42M [facility] Rx#:[id number] Intake, IV Titration 200 Amount Piperacillin-Tazobactam 3 200 .375 gm In Sodium Chloride 0.9% 100 ml @ 25 mls/hr IVPB Q8H [facility] Rx#: [id number] Oral 300 Output: Urine 800 Other: Voiding Method Indwelling Catheter Indwelling Catheter Gen.: The patient is reclining in the bed. She is in no acute distress. HEENT: Head is atraumatic, normocephalic. Fundus not visualized. There is no scleral icterus. Mucous membranes are moist. Neck: Supple, without carotid bruits Heart: Regular rate and rhythm Lungs: Clear to auscultation Extremities: Without edema Neurological examination Mental status: The patient is awake and alert. She is oriented to her name, date of . She is unable to state her age. She says that the year is "2020". The patient is unable to state the name of the manager business intelligence. The patient is oriented to location, after having been recently told where she is. Patient is oriented to the season. She reports the month to be "December". She repeatedly states that she does not know what happened and how or why she is in the hospital. When asked if she works, the patient quickly reports "yes, I have a job". She is unable to tell me what she does for work. There is registration of 3/3 objects. There is recall of 0/3 objects after 5 minutes and distraction. There is no right//left confusion or finger agnosia. The patient is able to follow two-step commands. The patient is able to repeat phrases. There is no anomia. Before the end of the examination the patient states "I thought I came to the hospital with both of my phones". Cranial nerves: Pupils are equal at 4 mm and reactive. Visual haney are full to confrontation. Extraocular movements are intact. There is no nystagmus. Facial sensation is intact. There is no facial asymmetry. Hearing is grossly intact. Uvula and palate are midline. Shoulder shrug is symmetric. Tongue protrudes midline. Motor: Strength in the upper extremities is 4/5. Bilateral hip flexors 3/5. Ankle dorsiflexors 5/5. Ankle plantar flexors 3/5. Sensation: Intact to light touch throughout. There is no extinction with double simultaneous stimulation. Coordination: Finger to nose, rapid alternating movements and heel to cutler testing is intact. Deep tendon reflexes: 1+/4+ throughout Gait: Not assessed Results - Laboratory Findings CBC and BMP: 11/19/21 05:43 11/19/21 05:43 Abnormal Lab Findings: Abnormal Labs 11/17/21 11/17/21 11/17/21 13:28 13:57 14:53 WBC 20.5 H RBC 3.42 L MCV 120.4 H MCH 40.3 H RDW 17.8 H Neutrophils # 18.2 H Macrocytosis Marked A PT INR Potassium Chloride Carbon Dioxide BUN Creatinine Glucose POC Glucose (mg/dL) 127 H Plasma Lactic Acid Mina Calcium Magnesium Total Bilirubin AST Total Protein Albumin Urine Appearance Cloudy H Urine Protein 1+ H Urine Ketones 1+ H Urine Bilirubin 1+ H Ur Leukocyte Esterase Large H Urine WBC 59 H Urine Bacteria Many H Urine Mucus Rare H 11/17/21 11/17/21 11/17/21 14:53 14:56 14:56 WBC RBC MCV MCH RDW Neutrophils # Macrocytosis PT 12.3 H INR 1.2 H Potassium 3.0 L Chloride Carbon Dioxide 15 L BUN 24 H Creatinine Glucose 125 H POC Glucose (mg/dL) Plasma Lactic Acid Mina 4.8 H* Calcium Magnesium Total Bilirubin 2.8 H AST 55 H Total Protein Albumin Urine Appearance Urine Protein Urine Ketones Urine Bilirubin Ur Leukocyte Esterase Urine WBC Urine Bacteria Urine Mucus 11/18/21 11/18/21 11/18/21 05:29 05:29 05:29 WBC 12.3 H RBC 2.86 L MCV 123.4 H MCH 40.0 H RDW 17.6 H Neutrophils # Macrocytosis Marked A PT 12.9 H INR 1.2 H Potassium 2.7 L* Chloride 111 H Carbon Dioxide 16 L BUN Creatinine Glucose 72 L POC Glucose (mg/dL) Plasma Lactic Acid Mina Calcium 7.2 L Magnesium 1.4 L Total Bilirubin 1.5 H AST 40 H Total Protein 6.1 L Albumin 2.8 L Urine Appearance Urine Protein Urine Ketones Urine Bilirubin Ur Leukocyte Esterase Urine WBC Urine Bacteria Urine Mucus 11/18/21 11/19/21 11/19/21 14:33 05:43 05:43 WBC RBC 2.89 L MCV 123.4 H MCH 39.6 H RDW 16.3 H Neutrophils # Macrocytosis Marked A PT INR Potassium 3.1 L Chloride 109 H 110 H Carbon Dioxide 19 L 19 L BUN 3 L Creatinine 0.47 L Glucose 66 L POC Glucose (mg/dL) Plasma Lactic Acid Mina Calcium 7.0 L Magnesium Total Bilirubin AST 43 H Total Protein 5.5 L Albumin 2.4 L Urine Appearance Urine Protein Urine Ketones Urine Bilirubin Ur Leukocyte Esterase Urine WBC Urine Bacteria Urine Mucus Assessment and Plan Assessment: 1. Inconsistent memory loss and confusion in a patient with a history of alcohol abuse, malnutrition-consider Korsakoff syndrome versus toxic/metab olic/treatable encephalopathy-related to urinary tract infection versus psychiatric disorder 2. Reported sacral decubitus ulcer 3. Hypokalemia on admission Plan: 1. EEG 2. Psych consult 3. B12, folate, TSH, thiamine level have been ordered 4. Your treatment of the infection related to bladder and wounds Thank you for allowing us to participate in the care of this patient. Dr. Zavala will take over neurologic coverage of this patient has of November 20, 2021. Time with Patient: Greater than 30 (Spent 40 minutes with patient via telemedicine)
--- NOTE | 2021-11-19 18:19 | P.PN ---
Subjective Progress Note Date: 11/19/21 (delayed charting seen at 1545) Principal diagnosis: sepsis Patient is a 61-year-old female with an uncertain past medical history was brought in by EMS for altered mentation. Neighbors called for a well check due to the odor coming from her apartment in her not having been outside in months as well as her not having been to work and months. On arrival EMS, fired, and she was found the apartment to be in disarray and had 2 shoulder weights the patient due to 2-3 feet of garbage. They did find him a seated. In the ER she underwent an extensive evaluation. On arrival she was tachycardic with a pulse of 106. White blood cell count 20.5, potassium 3, lactic acid 4.8, bilirubin 2.8, AST 55, anion gap 23 with a carbon dioxide of 15. Urinalysis was cloudy with 59 white blood cells. Influenza, RSV, and COVID-19 testing was negative. Urine drug screen and serum alcohol is negative. CT head shows no acute intracranial hemorrhage or midline shift with mild to moderate diffuse age- related cerebral atrophy. Chest x-ray revealed no acute process. She was started on Rocephin for possible urinary tract infection as well as IV fluids. Patient seen and examined at bedside. She is awake today. Her friend is visiting. She continues to struggle with mentation but is aware that it is 2021 and that she is hospital. She denies any chest pain shortness breath, nausea and vomiting. She still reports feeling confused and unsure why she is here. We recounted the story of how she was found and brought in. General: non toxic, no distress, appears older than stated age, temporal and buccal wasting, malodorous, disheveled Derm: warm, dry Head: atraumatic, normocephalic, symmetric Eyes: EOMI, no lid lag, anicteric sclera Mouth: no lip lesion, mucus membranes moist Cardiovascular: S1S2 reg, no murmur, positive posterior tibial pulse bilateral, Lungs: Coarse breath sounds bilateral, no rhonchi, no rales , no accessory muscle use Abdominal: soft, nontender to palpation, no guarding, no appreciable organomegaly Ext: no gross muscle atrophy, no edema, no contractures Neuro: CN II-XI grossly intact, no focal neuro deficits Psych: Alert, oriented to self and hospital, appropriate affect Assessment/plan: Severe Sepsis Possible urinary tract infection Stage II pressure ulcer of the coccyx, with drainage and surrounding cellulitis Dehydration - IVF - zosyn and vanvo - blood culture and urine cultures pending - off load and barrier cream - wound care consult Transaminitis - suspect alcoholic hepatitis - repeat labs in AM Acute toxic encephalopathy ETOH misuse - undetermined etiology - supportive care - treatment of sepsis - thiamine and foliac aid, MVI - no ativan at this time. - concern for korsakoff. consult neurology who recommended psych consult Severe protein calorie malnutrition -Dietary consultation -Ensure Social Stressors - per nursing house has been condemned and patient cannot return. Hypokalemia, hypomagnesemia, resolved DVT prophylaxis: Lovenox Discussed with: Patient, nursing Anticipated discharge: pending clinical course Anticipated discharge place: undetermined A total of 35 minutes was spent on the care of this complex patient more than 50% of the time was spent in counseling and care coordination. Objective - Vital Signs Vital signs: Vital Signs Temp 98.1 F 11/19/21 14:00 Pulse 91 11/19/21 14:00 Resp 16 11/19/21 14:00 BP 91/65 11/19/21 14:00 Pulse Ox 98 11/19/21 14:00 Intake & Output 11/18/21 11/19/21 11/19/21 18:59 06:59 18:59 Intake Total 1560 500 592 Output Total 800 1000 Balance 1560 -300 -408 Weight 50.349 kg Intake: IV 1560 Sodium Chloride 0.9% 1, 1560 000 ml @ 130 mls/hr IV . Q7H42M [facility] Rx#:[id number] Intake, IV Titration 200 Amount Piperacillin-Tazobactam 3 200 .375 gm In Sodium Chloride 0.9% 100 ml @ 25 mls/hr IVPB Q8H [facility] Rx#: [id number] Oral 300 592 Output: Urine 800 1000 Other: Voiding Method Indwelling Catheter Indwelling Catheter Indwelling Catheter - Labs CBC & Chem 7: 11/19/21 05:43 11/19/21 05:43 Labs: Abnormal Lab Results - Last 24 Hours (Table) 11/19/21 11/19/21 Range/Units 05:43 05:43 RBC 2.89 L (3.80-5.40) m/uL MCV 123.4 H (80.0-100.0) fL MCH 39.6 H (25.0-35.0) pg RDW 16.3 H (11.5-15.5) % Macrocytosis Marked A Chloride 110 H (98-107) mmol/L Carbon Dioxide 19 L (22-30) mmol/L BUN 3 L (7-17) mg/dL Creatinine 0.47 L (0.52-1.04) mg/dL Glucose 66 L (74-99) mg/dL Calcium 7.0 L (8.4-10.2) mg/dL AST 43 H (14-36) U/L Total Protein 5.5 L (6.3-8.2) g/dL Albumin 2.4 L (3.5-5.0) g/dL Microbiology - Last 24 Hours (Table) 11/17/21 13:57 Urine Culture - Preliminary Urine,Voided Gram Neg Bacilli 11/17/21 16:55 Blood Culture - Preliminary Blood No Growth after 24 hours 11/17/21 16:35 Blood Culture - Preliminary Blood No Growth after 24 hours
[2021-11-20] MEDS: SODIUM CHLORIDE 0.9% 1,000 ML IV SCH ×3 (01:22→12:43)
[2021-11-20] MEDS: PIPERACILLIN-TAZOBACTAM 3.375 GM in SODIUM CHLORIDE 0.9% 100 ML IVPB SCH ×3 (04:05→20:20)
[2021-11-20] MEDS: FOLIC ACID 1 MG TAB PO SCH (07:32)
[2021-11-20] MEDS: THIAMINE 100 MG/ML 2 ML VIAL IVP SCH ×2 (07:32→20:21)
[2021-11-20] MEDS: ENOXAPARIN 40 MG/0.4 ML SYRINGE SQ SCH (07:32)
[2021-11-20] MEDS: MULTIVITAMINS, THERA 1 EACH TAB PO SCH (07:32)
[2021-11-20 07:44] LABS: ALT 32 U/L (4-34); AST 64 U/L (14-36); African American GFR (CKD) >90 (>60 ml/min/1.73 sqM); Albumin 2.5 g/dL (3.5-5.0); Albumin/Globulin Ratio 0.8; Alkaline Phosphatase 86 U/L (38-126); Anion Gap 8 mmol/L; Blood Urea Nitrogen 4 mg/dL (7-17); Calcium 7.3 mg/dL (8.4-10.2); Carbon Dioxide 21 mmol/L (22-30); Chloride 108 mmol/L (98-107); Glucose 126 mg/dL (74-99); Magnesium 1.2 mg/dL (1.6-2.3); Non-African American GFR(CKD) >90 (>60 ml/min/1.73 sqM); Potassium 3.6 mmol/L (3.5-5.1); Sodium 137 mmol/L (137-145); Total Bilirubin 0.9 mg/dL (0.2-1.3); Total Protein 5.5 g/dL (6.3-8.2)
[2021-11-20 09:37] LABS: Anisocytosis Slight; HCT 33.8 % (34.0-46.0); HGB 10.9 gm/dL (11.4-16.0); Hypochromasia Moderate; MCH 41.1 pg (25.0-35.0); MCHC 32.3 g/dL (31.0-37.0); MCV 127.4 fL (80.0-100.0); Macrocytosis Marked; Mean Platelet Volume 7.9; Platelet Count 203 k/uL (150-450); RBC 2.66 m/uL (3.80-5.40); RDW 17.1 % (11.5-15.5); WBC 4.8 k/uL (3.8-10.6)
[2021-11-20] MEDS: MAGNESIUM SULFATE-D5W PMX 1 GM in DEXTROSE/WATER 1 100ML.BAG IVPB SCH ×4 (09:58→14:12)
--- NOTE | 2021-11-20 10:40 | EEG ---
ELECTROENCEPHALOGRAM REPORT DATE OF SERVICE: 11/20/2021 PREAMBLE: This is a 61-year-old female with altered mental status. Wernicke-Korsakoff syndrome is suspected. EEG FINDINGS: This is a 21-channel digital EEG recorded with video component, utilizing 10/20 international system with referential and bipolar montages. Background consists of well developed, moderately well regulated, predominantly 8 to 9 hertz alpha, seen in posterior head region. Background seems to be reactive to eye opening and closing. Frequent myogenic activity was seen in bitemporal frontal region. Photic driving response was seen with some flash frequencies. Drowsiness was seen with appearance of bilaterally symmetric theta frequency rhythm. Deeper stages of sleep were not seen. No definitive focal or generalized epileptiform activity was seen. IMPRESSION: This is probably a normal awake and drowsy EEG. No focal, lateralized or epileptiform activity was seen. Study was slightly limited because of excessive myogenic activity in bitemporal region. No definitive epileptiform activity was seen. MMODL / IJN: [id number] /
--- NOTE | 2021-11-20 11:07 | P.CONS ---
History of Present Illness - Reason for Consult Consult date: 11/20/21 wound care - History of Present Illness This is a 61-year-old patient being seen on [address]. for nonhealing ulceration to the coccyx. Patient has a stage II pressure ulcer cluster of 2 to the sacrum. The first ulceration measures 0.3 x 0.3 x 0.1 cm second ulceration measures 0.1 x 0.1 x 0.1 cm, fat layer exposed, granulation seen throughout the wound bed. Patient does have stage I pressure ulcers to bilateral calcaneus No maceration or excoriation noted positive erythema. Patient lives alone she is a poor historian. Past medical history significant for hypertension, denies diabetes or smoking. History of EtOH. Review Of Systems: Constitutional: No fever, no chills, no night sweats. No weight change. No weakness, fatigue or lethargy. No daytime sleepiness. Integumentary:reports wounds, no lesions. No rash or pruritus. No unusual bruising. No change in hair or nails. Physical exam: General Appearance: Alert, cooperative, no distress, appears stated age. Skin: See HPI all other Skin color, texture, tugor normal, no rashes or lesions. Neurologic: Alert oriented x3 Assessment: 1. Stage II pressure ulcer coccyx 2. Stage I pressure ulcers bilateral calcaneus Plan: 1.Apply triad to the site daily. use a air filled cushion for sitting, increase protein intake.. Thank you for the consultation any questions was contact the wound care center DNP note has been reviewed and discussed with Dr. Borden and the impression and plan of care has been directed as dictated. Past Medical History Past Medical History: Hypertension History of Any Multi-Drug Resistant Organisms: None Reported Past Surgical History: Unable to Obtain Past Psychological History: Anxiety, Depression Smoking Status: Never smoker Past Alcohol Use History: Heavy - Past Family History Father Family Medical History: Unable to Obtain Medications and Allergies Home Medications Medication Instructions Recorded Confirmed Type Unable To Assess [Unable to Assess] 11/17/21 11/17/21 History Allergies Allergy/AdvReac Type Severity Reaction Status Date / Time No Known Allergies Allergy Verified 11/17/21 15:00 Physical Exam Vitals: Vital Signs Temp Pulse Resp BP Pulse Ox 11/20/21 08:00 98.0 F 86 16 128/80 100 11/20/21 02:17 98.4 F 86 16 117/81 99 11/19/21 20:00 98.5 F 75 18 100/67 100 11/19/21 14:00 98.1 F 91 16 91/65 98 Intake and Output 11/19/21 11/20/21 11/20/21 22:59 06:59 14:59 Intake Total 296 2060 Output Total 1000 800 Balance -704 1260 Intake: Intake, IV Titration 1760 Amount Piperacillin-Tazobactam 3 200 .375 gm In Sodium Chloride 0.9% 100 ml @ 25 mls/hr IVPB Q8H [facility] Rx#: [id number] Sodium Chloride 0.9% 1, 1560 000 ml @ 130 mls/hr IV . Q7H42M [facility] Rx#:[id number] Oral 296 300 Output: Urine 1000 800 Other: Voiding Method Indwelling Catheter Indwelling Catheter Results CBC & Chem 7: 11/20/21 06:52 11/20/21 06:52 Labs: Abnormal Lab Results - Last 24 Hours (Table) 11/20/21 11/20/21 Range/Units 06:52 06:52 RBC 2.66 L (3.80-5.40) m/uL Hgb 10.9 L (11.4-16.0) gm/dL Hct 33.8 L (34.0-46.0) % MCV 127.4 H (80.0-100.0) fL MCH 41.1 H (25.0-35.0) pg RDW 17.1 H (11.5-15.5) % Macrocytosis Marked A Chloride 108 H (98-107) mmol/L Carbon Dioxide 21 L (22-30) mmol/L BUN 4 L (7-17) mg/dL Creatinine 0.49 L (0.52-1.04) mg/dL Glucose 126 H (74-99) mg/dL Calcium 7.3 L (8.4-10.2) mg/dL Magnesium 1.2 L (1.6-2.3) mg/dL AST 64 H (14-36) U/L Total Protein 5.5 L (6.3-8.2) g/dL Albumin 2.5 L (3.5-5.0) g/dL Microbiology - Last 24 Hours (Table) 11/17/21 16:55 Blood Culture - Preliminary Blood No Growth after 48 hours 11/17/21 16:35 Blood Culture - Preliminary Blood No Growth after 48 hours 11/17/21 13:57 Urine Culture - Preliminary Urine,Voided Gram Neg Bacilli Assessment and Plan (1) Pressure ulcer of coccygeal region, stage 2 Current Visit: Yes Status: Acute Code(s): L89.152 - PRESSURE ULCER OF SACRAL REGION, STAGE 2 SNOMED Code(s): 327892288 (2) Pressure ulcer of left heel, stage 1 Current Visit: Yes Status: Acute Code(s): L89.621 - PRESSURE ULCER OF LEFT HEEL, STAGE 1 SNOMED Code(s): 21019889793316 (3) Pressure ulcer of right heel, stage 1 Current Visit: Yes Status: Acute Code(s): L89.611 - PRESSURE ULCER OF RIGHT HEEL, STAGE 1 SNOMED Code(s): 67513858218077
--- NOTE | 2021-11-20 14:11 | P.PN ---
Subjective Progress Note Date: 11/20/21 Patient initially seen by Dr. Dodd. Please refer to her note for details. Patient has altered mental status, suspected toxic metabolic encephalopathy versus Korsakoff syndrome. She does have history of alcohol use. Patient states that she came to the hospital where she will felt disoriented, shaky, "out of sorts". She has not been eating, lives by herself. She has 2 children in their names is Johan and Enriqueta, who live not too far in visits her frequently. She says that she doesn't drink alcohol every day. Sometimes she drinks "little too much". This she refers to drinking water, 2-5 drinks, but not very often. She says that she only drinks minute sorts her. Not every day. Denies any headache at this time. No dizziness, nausea vomiting, abdominal pain or diarrhea. Patient could not tell me when this altered mental status started. Patient says that she does not have any altered mental status, just some day she does not sleep much, and she does not function as well. Psychiatry has seen the patient, who has noted that patient's insight is bed, uncertain if she is any underlying cognitive dysfunction. She is not delirious. He is recommending manager social responsibility consultation about home situation, if she is able to take care of herself. He doesn't believe that patient has capacity to make decisions. Objective - Vital Signs Vital signs: Vital Signs Temp 97.8 F 11/20/21 13:33 Pulse 87 11/20/21 13:33 Resp 16 11/20/21 13:33 BP 120/82 11/20/21 13:33 Pulse Ox 98 11/20/21 13:33 Intake & Output 11/19/21 11/20/21 11/20/21 18:59 06:59 18:59 Intake Total 592 2060 Output Total 1000 800 Balance -408 1260 Weight 50.349 kg Intake: Intake, IV Titration 1760 Amount Piperacillin-Tazobactam 3 200 .375 gm In Sodium Chloride 0.9% 100 ml @ 25 mls/hr IVPB Q8H [facility] Rx#: [id number] Sodium Chloride 0.9% 1, 1560 000 ml @ 130 mls/hr IV . Q7H42M [facility] Rx#:[id number] Oral 592 300 Output: Urine 1000 800 Other: Voiding Method Indwelling Catheter Indwelling Catheter Indwelling Catheter - Exam Patient is alert and awake. She knows that she is in [facility] in [place], her name, her date of , although she thinks she is a 59 although she is actually 61. She knows name of the capital [facility]. She could not tell the current month or the year. She could not tell name of the current president of the believes Simba is the president. Speech and language functions are normal. No aphasia or dysarthria. Pupils are equal, round and reacting visual haney are full, face is symmetric. Extraocular muscles are intact with slight nystagmus. Tongue protrudes the midline. Muscle strength is normal in the arms and legs. Patient has mild clumsiness for [id number] testing but no obvious ataxia. Tone and bulk of muscles normal. Patient has negative palmomental reflex, negative visuospatial apraxia. Gait deferred. Sensations equal. - Labs CBC & Chem 7: 11/20/21 06:52 11/20/21 06:52 Labs: Abnormal Lab Results - Last 24 Hours (Table) 11/20/21 11/20/21 Range/Units 06:52 06:52 RBC 2.66 L (3.80-5.40) m/uL Hgb 10.9 L (11.4-16.0) gm/dL Hct 33.8 L (34.0-46.0) % MCV 127.4 H (80.0-100.0) fL MCH 41.1 H (25.0-35.0) pg RDW 17.1 H (11.5-15.5) % Macrocytosis Marked A Chloride 108 H (98-107) mmol/L Carbon Dioxide 21 L (22-30) mmol/L BUN 4 L (7-17) mg/dL Creatinine 0.49 L (0.52-1.04) mg/dL Glucose 126 H (74-99) mg/dL Calcium 7.3 L (8.4-10.2) mg/dL Magnesium 1.2 L (1.6-2.3) mg/dL AST 64 H (14-36) U/L Total Protein 5.5 L (6.3-8.2) g/dL Albumin 2.5 L (3.5-5.0) g/dL Microbiology - Last 24 Hours (Table) 11/17/21 13:57 Urine Culture - Final Urine,Voided Escherichia coli 11/17/21 16:55 Blood Culture - Preliminary Blood No Growth after 48 hours 11/17/21 16:35 Blood Culture - Preliminary Blood No Growth after 48 hours Assessment and Plan Assessment: 1. Inconsistent memory loss and confusion in a patient with a history of alcohol abuse, malnutrition-consider Korsakoff syndrome versus toxic/metabolic/treatable encephalopathy-related to urinary tract infection versus psychiatric disorder 2. Reported sacral decubitus ulcer 3. Hypokalemia on admission Plan: 1. EEG was performed, which revealed no epileptiform activity. No significant abnormality noted. Study was technically limited because of excessive myogenic activity in bitemporal region. 2. Psych consult input appreciated. Psychiatry is planning to Start her on Seroquel. 3. B12 495, folate 11.6, TSH 1.89, thiamine level still pending. 4. MRI brain pending. 5. Your treatment of the infection related to bladder and wounds
[2021-11-20] MEDS: HYDROPHILIC CREAM 180 GM TUBE TOPICAL SCH (14:13)
--- NOTE | 2021-11-20 14:46 | P.CN ---
Psychiatric Consult - . Consult date: 11/20/21 Consult:: 11/20/21 12:57 IDENTIFYING DATA: This patient is a 61-year-old female, currently lives alone in a house, has 2 kids and apparently works at a bar. REASON FOR REFERRAL: Psychiatry was consulted for "hording" HISTORY OF PRESENT ILLNESS: The patient presented to the hospital on 11/17. Patient apparently was having a rapid decline in her functioning and called the neighbor as she was feeling too weak according to ER report. Patient apparently was having poor oral intake. She also had a urinary tract infection was dehydrated. She has pressure ulcers and also cellulitis which was noted. Patient had B12 folic acid and TSH were within normal limits. Patient also had a urine drug screen which is negative. EEG was negative for seizures and encephalopathy. Computed tomography scan did not show any acute changes. Lindsey ga was seen today at the bedside and claims that she was "out of sorts" and claims that she was having "a lot on my mind" and states that she does not know why she is not hospital. She claims that she has a lot of "stuff on my mind" and minimized the situation. She was fairly shocked when assembly instructions writer explained the condition of her house and asked her about it and she refused to acknowledge this. She is denying any depression or anxiety. She denies any problems or for overnight complaints. She claims that she has not ever any problem with cleanliness and states that she showers every day and also as her son come to help her with her house however according to EMS report that patient was found in a cluttered environment at home and patient appears to have disheveled appearance long fingernails which are dirty and also poor hygiene and grooming. She claims that her sleep has been unpredictable and mainly not good . She appears to have poor reality testing. At this time patient denies any suicidal or homical ideations, intent or plan. Patient denies any auditory, visual hallucinations and denies any paranoia or delusions. Patients admits to using no recreational drugs or cigarettes. PAST PSYCHIATRIC HISTORY: Patient has a a history of . Alcohol use. Patient denies being on any psychiatric medications. Patient denies any previous psychiatric hospitalizations. Patient denies any psychiatric outpatient follow- up. Patient denies any history of suicide attempts in the past. PAST MEDICAL HISTORY: [Please refer to medical H&P. ALLERGIES: as per EMR. CHEMICAL DEPENDENCY HISTORY: as per HPI. FAMILY PSYCHIATRIC/SUBSTANCE USE HISTORY: denies SOCIAL HISTORY: Patient was born and raised in [facility]. She states that she was adopted. She claims that she quit high school and did 2 years of college. She claims that she works several jobs in the past. Denies any [facility] or long-term time. MENTAL STATUS EXAM: General Appearance: Patient appears to be thin, disheveled appearance, long unkempt fingernails which are also dirty. Older than stated age is alert, attempts to be cooperative however was fairly superficial and evasive. Patient appears to have poor hygiene and grooming wearing hospital gown with fair eye contact. Behavior: Patient is calmly lying in bed without any agitated behavior. Evasive and guarded. Speech: Patient's speech is fluent and nonpressured. Mood/Affect: Patient reports their mood is "fine", affect is congruent Suicidality/Homicidality: Patient denies having any suicidal or homicidal ideation intent or plan. Perceptions: Patient denies any visual hallucinations and denies any auditory hallucinations Though content/process: There is no evidence of any delusional thought content and thought process is linear and goal-directed. Poor reality testing. Memory and concentration: AOX3, grossly intact for the purposes of this session. Poor reality testing. Judgment and insight: poor IMPRESSIONS: Cognitive disorder unspecified hoarding disorder possible alcohol use disorder PLAN: -At this time patient DOES NOT meet criteria for inpatient psychiatric admission. -Patient DOES NOT have general decision making capacity at this time and is unable to reason through and communicate/appreciate the risks, benefits and alternatives to treatment and her condition. metal worker to speak with family/kids to gain further information and possibly see gaurdianship as she is not able to rartionalling make good decisions and care for herself. -Delirium precautions recommended with patient including - avoiding use of na rcotics and BELT BUILDER sedatives, limit anticholinergic medications when possible, frequent re-orientation, minimize use of restraints, open window shades during the day and close them at night -Would recommend the following medication changes/additions: start seroquel 25 mg qhs for mood stabilization/insomnia. -aged or disabled care worker to provide patient with outpatient mental health/psychiatry resources for appropriate follow up upon discharge -Communicated plan to patient's nurse -Will continue to follow along tomorrow then likely sign off. -Please contact with any questions. 11/20/21 14:37
[2021-11-20] MEDS: LORazepam 2 MG/ML INJ IV PRN (16:46)
--- NOTE | 2021-11-20 19:56 | MR ---
EXAMINATION TYPE: MR brain wo con DATE OF EXAM: 11/20/2021 5:42 PM COMPARISON: CT brain 11/17/2021. CLINICAL INDICATION:Female, 61 years old with history of mental status change; TECHNIQUE: Multi planar, multi sequence imaging was performed through the brain including: T1, T2, In version recovery, Diffusion weighted imaging, and gradient echo imaging. No gadolinium was given. FINDINGS: The ventricular system, and cisterns appear unremarkable. There is diffuse scattered volume loss. Sc attered deep white matter areas of high T2 signal intensity are seen within the periventricular white matter as well as the subcortical white matter bilaterally of the insular cortex. Midline structures show no abnormality. Diffusion-weighted imaging shows no evidence of restricted diffusion. The susce ptibility weighted images do not reveal any evidence for micro-hemorrhage. The bone marrow signal is within normal limits. The paranasal sinuses and globes are unremarkable. IMPRESSION: 1. No evidence of intracranial mass or acute/subacute infarct. 2. Scattered white matter changes that are nonspecific and likely secondary to small vessel ischemic disease.
[2021-11-20] MEDS: QUEtiapine 25 MG TAB PO SCH (20:21)
--- NOTE | 2021-11-20 20:36 | P.PN ---
Subjective Progress Note Date: 11/20/21 (delayed charting seen at 0930) Principal diagnosis: sepsis Patient is a 61-year-old female with an uncertain past medical history was brought in by EMS for altered mentation. Neighbors called for a well check due to the odor coming from her apartment in her not having been outside in months as well as her not having been to work and months. On arrival of EMS, fire, and police s found the apartment to be in disarray and had [address] to the patient due to 2-3 feet of garbage. They did find her a seated in a chair. In the ER she underwent an extensive evaluation. On arrival she was tachycardic with a pulse of 106. White blood cell count 20.5, potassium 3, lactic acid 4.8, bilirubin 2.8, AST 55, anion gap 23 with a carbon dioxide of 15. Urinalysis was cloudy with 59 white blood cells. Influenza, RSV, and COVID-19 testing was negative. Urine drug screen and serum alcohol is negative. CT head shows no acute intracranial hemorrhage or midline shift with mild to moderate diffuse age-related cerebral atrophy. Chest x-ray revealed no acute process. She was started on Rocephin for possible urinary tract infection as well as IV fluids. She was seen by neurology for possible Korsakoff syndrome. She underwent an EEG which was negative for signs of seizure activity. MRI of the brain showed white matter ischemic changes. She was seen by psychiatry and started on Seroquel, and she was determined not to have decision-making capacity at this time. Patient seen and examined at bedside. She is awake and alert but again cannot remember what brought her to the hospital despite her multiple conversation yesterday and the day before. She denies any chest pain or shortness of breath. She is able to tell me that is 2021. She is able to tell me the city as [place] on. She is unable to identify Pres. (yesterday she did identify Leonardo Wilburn). She was unable to tell me that she was in the hospital or the name of the hospital. 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 It appears patient has confabulation. General: non toxic, no distress, appears older than stated age, temporal and buccal wasting, malodorous, disheveled Derm: warm, dry Head: atraumatic, normocephalic, symmetric Eyes: EOMI, no lid lag, anicteric sclera Mouth: no lip lesion, mucus membranes moist Cardiovascular: S1S2 reg, no murmur, positive posterior tibial pulse bilateral, Lungs: Coarse breath sounds bilateral, no rhonchi, no rales , no accessory muscle use Abdominal: soft, nontender to palpation, no guarding, no appreciable organomegaly Ext: no gross muscle atrophy, no edema, no contractures Neuro: CN II-XI grossly intact, no focal neuro deficits Psych: Alert, oriented to self and hospital, appropriate affect Assessment/plan: Severe Sepsis E. Coli urinary tract infection Stage II pressure ulcer of the coccyx, with drainage and surrounding cellulitis Dehydration - IVF - rocephin, ABX D #4 - blood culture and urine cultures pending - off load and barrier cream - wound care recs - PT/OT evaluation Transaminitis - suspect alcoholic hepatitis - repeat labs in AM Acute toxic encephalopathy ETOH misuse Confabulation Hoarding behaviours - undetermined etiology - supportive care - treatment of sepsis - thiamine and foliac aid, MVI - no ativan at this time. - concern for korsakoff. - neuro and psych recs appreciated - MRI: small vessel ischemic changes Severe protein calorie malnutrition -Dietary consultation -Ensure Social Stressors - per nursing house has been condemned and patient cannot return. Hypokalemia, hypomagnesemia, resolved DVT prophylaxis: Lovenox Discussed with: Patient, nursing Anticipated discharge: pending clinical course Anticipated discharge place: undetermined A total of 35 minutes was spent on the care of this complex patient more than 50% of the time was spent in counseling and care coordination. Objective - Vital Signs Vital signs: Vital Signs Temp 97.8 F 11/20/21 13:33 Pulse 87 11/20/21 13:33 Resp 16 11/20/21 13:33 BP 120/82 11/20/21 13:33 Pulse Ox 98 11/20/21 13:33 Intake & Output 11/20/21 11/20/21 11/21/21 06:59 18:59 06:59 Intake Total 2060 Output Total 800 1700 Balance 1260 -1700 Weight 50.349 kg Intake: Intake, IV Titration 1760 Amount Piperacillin-Tazobactam 3 200 .375 gm In Sodium Chloride 0.9% 100 ml @ 25 mls/hr IVPB Q8H [facility] Rx#: [id number] Sodium Chloride 0.9% 1, 1560 000 ml @ 130 mls/hr IV . Q7H42M [facility] Rx#:[id number] Oral 300 Output: Urine 800 1700 Uretheral (Gudino) 1700 Other: Voiding Method Indwelling Catheter Indwelling Catheter # Voids 2 - Labs CBC & Chem 7: 11/20/21 06:52 11/20/21 06:52 Labs: Abnormal Lab Results - Last 24 Hours (Table) 11/20/21 11/20/21 Range/Units 06:52 06:52 RBC 2.66 L (3.80-5.40) m/uL Hgb 10.9 L (11.4-16.0) gm/dL Hct 33.8 L (34.0-46.0) % MCV 127.4 H (80.0-100.0) fL MCH 41.1 H (25.0-35.0) pg RDW 17.1 H (11.5-15.5) % Macrocytosis Marked A Chloride 108 H (98-107) mmol/L Carbon Dioxide 21 L (22-30) mmol/L BUN 4 L (7-17) mg/dL Creatinine 0.49 L (0.52-1.04) mg/dL Glucose 126 H (74-99) mg/dL Calcium 7.3 L (8.4-10.2) mg/dL Magnesium 1.2 L (1.6-2.3) mg/dL AST 64 H (14-36) U/L Total Protein 5.5 L (6.3-8.2) g/dL Albumin 2.5 L (3.5-5.0) g/dL Microbiology - Last 24 Hours (Table) 11/17/21 13:57 Urine Culture - Final Urine,Voided Escherichia coli 11/17/21 16:55 Blood Culture - Preliminary Blood No Growth after 48 hours 11/17/21 16:35 Blood Culture - Preliminary Blood No Growth after 48 hours
[2021-11-21] MEDS: FOLIC ACID 1 MG TAB PO SCH (09:38)
[2021-11-21] MEDS: MULTIVITAMINS, THERA 1 EACH TAB PO SCH (09:38)
[2021-11-21] MEDS: ENOXAPARIN 40 MG/0.4 ML SYRINGE SQ SCH (09:39)
[2021-11-21] MEDS: THIAMINE 100 MG/ML 2 ML VIAL IVP SCH ×2 (09:41→23:05)
[2021-11-21] MEDS: HYDROPHILIC CREAM 180 GM TUBE TOPICAL SCH (09:57)
[2021-11-21 11:08] LABS: Anisocytosis Slight; HCT 36.9 % (34.0-46.0); HGB 11.6 gm/dL (11.4-16.0); MCH 38.8 pg (25.0-35.0); MCHC 31.5 g/dL (31.0-37.0); MCV 123.2 fL (80.0-100.0); Macrocytosis Marked; Mean Platelet Volume 7.8; Platelet Count 247 k/uL (150-450); WBC 6.9 k/uL (3.8-10.6)
[2021-11-21 11:17] LABS: ALT 37 U/L (4-34); AST 61 U/L (14-36); African American GFR (CKD) >90 (>60 ml/min/1.73 sqM); Albumin 2.9 g/dL (3.5-5.0); Albumin/Globulin Ratio 0.9; Alkaline Phosphatase 93 U/L (38-126); Anion Gap 4 mmol/L; Blood Urea Nitrogen 3 mg/dL (7-17); Calcium 7.9 mg/dL (8.4-10.2); Carbon Dioxide 31 mmol/L (22-30); Chloride 104 mmol/L (98-107); Globulin 3.1 g/dL; Glucose 127 mg/dL (74-99); Magnesium 1.3 mg/dL (1.6-2.3); Non-African American GFR(CKD) >90 (>60 ml/min/1.73 sqM); Sodium 139 mmol/L (137-145); Total Bilirubin 0.8 mg/dL (0.2-1.3)
--- NOTE | 2021-11-21 11:48 | P.PN ---
Progress Note - Text Progress Note Date: 11/21/21 Interval History: Patient was seen today for psychiatric follow-up. Patient was seen today sitt ing in her chair. She claims that she does not recognize screen writer however appears to be fairly appropriate and has good attention span. She continues to have minimal insight and judgment. She was fairly directable during conversation and attempting to cooperate as best as she could. She is denying any depression or anxiety today. She was oriented to name and place only and did not know what the date is. She does not know who the president is. She states that she slept fairly last night and has a fair appetite. Continues to have poor decision making skills. At this time patient denies any suicidal or homical ideations, intent or plan. Patient denies any auditory, visual hallucinations. Patient denies any side effects from the medications and has been compliant with meds. Mental Status Exam: General Appearance: Patient appears to be thin, disheveled appearance, long unkempt fingernails which are also dirty. Older than stated age is alert, attempts to be cooperative. Patient appears to have poor hygiene and grooming wearing hospital gown with fair eye contact. Behavior: Patient is calmly lying in bed without any agitated behavior. Evasive Speech: Patient's speech is fluent and nonpressured. Mood/Affect: Patient reports their mood is "ok", affect is congruent Suicidality/Homicidality: Patient denies having any suicidal or homicidal ideation intent or plan. Perceptions: Patient denies any visual hallucinations and denies any auditory hallucinations Though content/process: There is no evidence of any delusional thought content and thought process is linear and goal-directed. Poor reality testing. Memory and concentration: AOX2, does not know today's date. Poor reality testing. Judgment and insight: Chronically limited IMPRESSIONS: Cognitive disorder unspecified hoarding disorder possible alcohol use disorder PLAN: -At this time patient DOES NOT meet criteria for inpatient psychiatric admission. -Patient DOES NOT have general decision making capacity at this time and is unable to reason through and communicate/appreciate the risks, benefits and alternatives to treatment and her condition. cushion worker to speak with family/kids to gain further information and possibly see gaurdianship as she is not able to rationally make good decisions and care for herself. -Delirium precautions recommended with patient including - avoiding use of narcotics and LENS BLOCK GAUGER sedatives, limit anticholinergic medications when possible, frequent re-orientation, minimize use of restraints, open window shades during the day and close them at night -Would recommend the following medication changes/additions: seroquel 25 mg qhs for mood stabilization/insomnia. -call worker to provide patient with outpatient mental health/psychiatry resources for appropriate follow up upon discharge -Communicated plan to patient's nurse -At this time psychiatry will sign off. -Please contact with any questions.
[2021-11-21] MEDS: GABAPENTIN 100 MG CAP PO SCH ×3 (11:50→21:48)
[2021-11-21] MEDS ORDERED: POTASSIUM CHLORIDE ER 20 MEQ TAB.ER PO STA (18:51)
--- NOTE | 2021-11-21 18:55 | P.PN ---
Subjective Progress Note Date: 11/21/21 (delayed charting seen at approx 1030) Principal diagnosis: sepsis Patient is a 61-year-old female with an uncertain past medical history was brought in by EMS for altered mentation. Neighbors called for a well check due to the odor coming from her apartment in her not having been outside in months as well as her not having been to work and months. On arrival of EMS, fire, and police s found the apartment to be in disarray and had [address] to the patient due to 2-3 feet of garbage. They did find her a seated in a chair. In the ER she underwent an extensive evaluation. On arrival she was tachycardic with a pulse of 106. White blood cell count 20.5, potassium 3, lactic acid 4.8, bilirubin 2.8, AST 55, anion gap 23 with a carbon dioxide of 15. Urinalysis was cloudy with 59 white blood cells. Influenza, RSV, and COVID-19 testing was neg ative. Urine drug screen and serum alcohol is negative. CT head shows no acute intracranial hemorrhage or midline shift with mild to moderate diffuse age- related cerebral atrophy. Chest x-ray revealed no acute process. She was started on Rocephin for possible urinary tract infection as well as IV fluids. She was seen by neurology for possible Korsakoff syndrome. She underwent an EEG which was negative for signs of seizure activity. MRI of the brain showed white matter ischemic changes. She was seen by psychiatry and started on Seroquel, and she was determined not to have decision-making capacity at this time. Patient seen and examined at bedside. Awake again confused and unable to recall any of out conversation from yesterday. Told multiple times how to use call light and continues to fixate and ask about the call light. Denies pain, shortness of breath. General: non toxic, no distress, appears older than stated age, temporal and buccal wasting, malodorous, disheveled Derm: warm, dry Head: atraumatic, normocephalic, symmetric Eyes: EOMI, no lid lag, anicteric sclera Mouth: no lip lesion, mucus membranes moist Cardiovascular: S1S2 reg, no murmur, positive posterior tibial pulse bilateral, Lungs: Coarse breath sounds bilateral, no rhonchi, no rales , no accessory muscle use Abdominal: soft, nontender to palpation, no guarding, no appreciable organomegaly Ext: no gross muscle atrophy, no edema, no contractures Neuro: CN II-XI grossly intact, no focal neuro deficits Psych: Alert, oriented to self and hospital, appropriate affect Assessment/plan: Severe Sepsis E. Coli urinary tract infection Stage II pressure ulcer of the coccyx, with drainage and surrounding cellulitis Dehydration - IVF - rocephin, ABX D #5 - blood culture and urine cultures pending - off load and barrier cream - wound care recs - PT/OT evaluation Acute toxic encephalopathy ruled out suspected neurocognitive disorder ETOH misuse Confabulation Hoarding behaviours - thiamine and foliac aid, MVI - no ativan at this time. - concern for korsakoff. - neuro and psych recs appreciated - MRI: small vessel ischemic changes Severe protein calorie malnutrition -Dietary consultation -Ensure Social Stressors - per nursing house has been condemned and patient cannot return. Hypokalemia, hypomagnesemia, Recurrent - replace and recheck in AM Transaminitis, resolved DVT prophylaxis: Lovenox Discussed with: Patient, nursing, social work Anticipated discharge: in 1-[address]: SNF A total of 35 minutes was spent on the care of this complex patient more than 50% of the time was spent in counseling and care coordination. Objective - Vital Signs Vital signs: Vital Signs Temp 98.6 F 11/21/21 14:00 Pulse 98 11/21/21 14:00 Resp 18 11/21/21 14:00 BP 90/56 11/21/21 14:00 Pulse Ox 99 11/21/21 14:00 Intake & Output 11/20/21 11/21/21 11/21/21 18:59 06:59 18:59 Intake Total 450 Output Total 1700 2 Balance -1700 450 -2 Weight 50.349 kg Intake: Oral 450 Output: Urine 1700 Uretheral (Gudino) 1700 Stool 2 Other: Voiding Method Indwelling Catheter Bedpan Incontinent External Catheter # Voids 2 5 - Labs CBC & Chem 7: 11/21/21 10:44 11/21/21 10:44 Labs: Abnormal Lab Results - Last 24 Hours (Table) 11/21/21 11/21/21 Range/Units 10:44 10:44 RBC 3.00 L (3.80-5.40) m/uL MCV 123.2 H (80.0-100.0) fL MCH 38.8 H (25.0-35.0) pg RDW 16.0 H (11.5-15.5) % Macrocytosis Marked A Potassium 3.0 L (3.5-5.1) mmol/L Carbon Dioxide 31 H (22-30) mmol/L BUN 3 L (7-17) mg/dL Creatinine 0.39 L (0.52-1.04) mg/dL Glucose 127 H (74-99) mg/dL Calcium 7.9 L (8.4-10.2) mg/dL Magnesium 1.3 L (1.6-2.3) mg/dL AST 61 H (14-36) U/L ALT 37 H (4-34) U/L Total Protein 6.0 L (6.3-8.2) g/dL Albumin 2.9 L (3.5-5.0) g/dL Microbiology - Last 24 Hours (Table) 11/17/21 16:55 Blood Culture - Preliminary Blood No Growth after 72 hours 11/17/21 16:35 Blood Culture - Preliminary Blood No Growth after 72 hours
[2021-11-21] MEDS: MAGNESIUM SULFATE-D5W PMX 1 GM in DEXTROSE/WATER 1 100ML.BAG IVPB SCH ×2 (21:47→23:06)
[2021-11-21] MEDS: QUEtiapine 25 MG TAB PO SCH (21:48)
[2021-11-22] MEDS: MAGNESIUM SULFATE-D5W PMX 1 GM in DEXTROSE/WATER 1 100ML.BAG IVPB SCH ×2 (00:23→01:27)
[2021-11-22 00:45] LABS: Glucose,Whole Blood 172 mg/dL (75-99)
[2021-11-22 04:48] LABS: Anisocytosis Slight; HGB 11.6 gm/dL (11.4-16.0); MCH 38.7 pg (25.0-35.0); MCHC 31.5 g/dL (31.0-37.0); MCV 122.9 fL (80.0-100.0); Macrocytosis Marked; Mean Platelet Volume 7.8; Platelet Count 218 k/uL (150-450); RBC 3.01 m/uL (3.80-5.40); RDW 16.1 % (11.5-15.5); WBC 6.8 k/uL (3.8-10.6)
[2021-11-22 05:00] LABS: ALT 37 U/L (4-34); AST 67 U/L (14-36); African American GFR (CKD) >90 (>60 ml/min/1.73 sqM); Albumin 2.8 g/dL (3.5-5.0); Albumin/Globulin Ratio 0.9; Alkaline Phosphatase 101 U/L (38-126); Anion Gap 3 mmol/L; Blood Urea Nitrogen 9 mg/dL (7-17); Calcium 8.2 mg/dL (8.4-10.2); Carbon Dioxide 30 mmol/L (22-30); Chloride 103 mmol/L (98-107); Glucose 120 mg/dL (74-99); Magnesium 2.8 mg/dL (1.6-2.3); Non-African American GFR(CKD) >90 (>60 ml/min/1.73 sqM); Potassium 3.3 mmol/L (3.5-5.1); Sodium 136 mmol/L (137-145); Total Bilirubin 0.6 mg/dL (0.2-1.3); Total Protein 5.8 g/dL (6.3-8.2)
[2021-11-22] MEDS: GABAPENTIN 100 MG CAP PO SCH ×3 (07:19→20:56)
[2021-11-22] MEDS: FOLIC ACID 1 MG TAB PO SCH (07:19)
[2021-11-22] MEDS: THIAMINE 100 MG/ML 2 ML VIAL IVP SCH ×2 (07:20→21:38)
[2021-11-22] MEDS: MULTIVITAMINS, THERA 1 EACH TAB PO SCH (07:20)
[2021-11-22] MEDS: ENOXAPARIN 40 MG/0.4 ML SYRINGE SQ SCH (07:21)
[2021-11-22] MEDS: HYDROPHILIC CREAM 180 GM TUBE TOPICAL SCH (07:26)
[2021-11-22] MEDS ORDERED: POTASSIUM CHLORIDE ER 20 MEQ TAB.ER PO STA (08:14)
--- NOTE | 2021-11-22 12:22 | P.PN ---
Subjective Progress Note Date: 11/21/21 11/21/2021: Patient laying comfortably in the bed. She appears somewhat anxious. Patient states her memory is getting better. Patient states she is concerned that she just went her diaper. Denies any headache or any focal symptoms. 11/20/2021: Patient initially seen by Dr. Dodd. Please refer to her note for details. Patient has altered mental status, suspected toxic metabolic encephalopathy versus Korsakoff syndrome. She does have history of alcohol use. Patient states that she came to the hospital where she will felt disoriented, shaky, "out of sorts". She has not been eating, lives by herself. She has 2 children in their names is Johan and Enriqueta, who live not too far in visits her frequently. She says that she doesn't drink alcohol every day. Sometimes she drinks "little too much". This she refers to drinking water, 2-5 drinks, but not very often. She says that she only drinks minute sorts her. Not every day. Denies any headache at this time. No dizziness, nausea vomiting, abdominal pain or diarrhea. Patient could not tell me when this altered mental status started. Patient says that she does not have any altered mental status, just some day she does not sleep much, and she does not function as well. Psychiatry has seen the patient, who has noted that patient's insight is bed, uncertain if she is any underlying cognitive dysfunction. She is not delirious. He is recommending social services consultation about home situation, if she is able to take care of herself. He doesn't believe that patient has capacity to make decisions. Objective - Vital Signs Vital signs: Vital Signs Temp 98.6 F 11/21/21 14:00 Pulse 98 11/21/21 14:00 Resp 18 11/21/21 14:00 BP 90/56 11/21/21 14:00 Pulse Ox 99 11/21/21 14:00 Intake & Output 11/20/21 11/21/21 11/21/21 18:59 06:59 18:59 Intake Total 450 Output Total 1700 2 Balance -1700 450 -2 Weight 50.349 kg Intake: Oral 450 Output: Urine 1700 Uretheral (Gudino) 1700 Stool 2 Other: Voiding Method Indwelling Catheter Bedpan Incontinent External Catheter # Voids 2 5 - Exam Patient is alert and awake. Patient states that it is April 2021 she thinks Mr. Cottrell is the president. She knows she is in [place] in [place]. Speech and language functions are normal. No aphasia or dysarthria. Pupils are equal, round and reacting visual haney are full, face is symmetric. Extraocular muscles are intact with slight nystagmus. Tongue protrudes the midline. Muscle strength is normal in the arms and legs. Patient has mild clumsiness for [id number] testing but no obvious ataxia. Tone and bulk of muscles normal. Patient has negative palmomental reflex, negative visuospatial apraxia. Gait deferred. Sensations equal. - Labs CBC & Chem 7: 11/22/21 04:11 11/22/21 04:11 Labs: Abnormal Lab Results - Last 24 Hours (Table) 11/21/21 11/21/21 Range/Units 10:44 10:44 RBC 3.00 L (3.80-5.40) m/uL MCV 123.2 H (80.0-100.0) fL MCH 38.8 H (25.0-35.0) pg RDW 16.0 H (11.5-15.5) % Macrocytosis Marked A Potassium 3.0 L (3.5-5.1) mmol/L Carbon Dioxide 31 H (22-30) mmol/L BUN 3 L (7-17) mg/dL Creatinine 0.39 L (0.52-1.04) mg/dL Glucose 127 H (74-99) mg/dL Calcium 7.9 L (8.4-10.2) mg/dL Magnesium 1.3 L (1.6-2.3) mg/dL AST 61 H (14-36) U/L ALT 37 H (4-34) U/L Total Protein 6.0 L (6.3-8.2) g/dL Albumin 2.9 L (3.5-5.0) g/dL Microbiology - Last 24 Hours (Table) 11/17/21 16:55 Blood Culture - Preliminary Blood No Growth after 72 hours 11/17/21 16:35 Blood Culture - Preliminary Blood No Growth after 72 hours Assessment and Plan Assessment: 1. Inconsistent memory loss and confusion in a patient with a history of alcohol abuse, malnutrition-consider Korsakoff syndrome, however thiamine level is normal. Differential also includes toxic/metabolic/treatable encephalopathy- related to urinary tract infection versus psychiatric disorder 2. Reported sacral decubitus ulcer 3. Hypokalemia on admission Plan: 1. EEG was performed, which revealed no epileptiform activity. No significant abnormality noted. Study was technically limited because of excessive myogenic activity in bitemporal region. 2. Psych consult input appreciated. Psychiatry is planning to Start her on Seroquel. 3. B12 495, folate 11.6, TSH 1.89, thiamine level 89 normal. 4. MRI brain revealed no evidence of intracranial mass, acute or subacute inf arct. Scattered white matter changes that are nonspecific and likely secondary to small vessel ischemic disease. I personally reviewed MRI of the brain agree with the findings. 5. Your treatment of the infection related to bladder and wounds. Neurologically clear otherwise.
--- NOTE | 2021-11-22 17:35 | P.PN ---
Subjective Progress Note Date: 11/22/21 (delayed charting seen at 1030) Principal diagnosis: sepsis Patient is a 61-year-old female with an uncertain past medical history was brought in by EMS for altered mentation. Neighbors called for a well check due to the odor coming from her apartment in her not having been outside in months as well as her not having been to work and months. On arrival of EMS, fire, and police s found the apartment to be in disarray and had [address] to the patient due to 2-3 feet of garbage. They did find her a seated in a chair. In the ER she underwent an extensive evaluation. On arrival she was tachycardic with a pulse of 106. White blood cell count 20.5, potassium 3, lactic acid 4.8, bilirubin 2.8, AST 55, anion gap 23 with a carbon dioxide of 15. Urinalysis was cloudy with 59 white blood cells. Influenza, RSV, and COVID-19 testing was negative. Urine drug screen and serum alcohol is negative. CT head shows no acute intracranial hemorrhage or midline shift with mild to moderate diffuse age-related cerebral atrophy. Chest x-ray revealed no acute process. She was started on Rocephin for possible urinary tract infection as well as IV fluids. She was seen by neurology for possible Korsakoff syndrome. She underwent an EEG which was negative for signs of seizure activity. MRI of the brain showed white matter ischemic changes. She was seen by psychiatry and started on Seroquel, and she was determined not to have decision-making capacity at this time. Patient seen and examined at bedside. Awake continues to be confused. Denies shortness of breath, pain, nausea, per nursing she has been eating. General: non toxic, no distress, appears older than stated age, temporal and buccal wasting, malodorous, disheveled Derm: warm, dry Head: atraumatic, normocephalic, symmetric Eyes: EOMI, no lid lag, anicteric sclera Mouth: no lip lesion, mucus membranes moist Cardiovascular: S1S2 reg, no murmur, positive posterior tibial pulse bilateral, Lungs: Coarse breath sounds bilateral, no rhonchi, no rales , no accessory muscle use Abdominal: soft, nontender to palpation, no guarding, no appreciable organomegaly Ext: no gross muscle atrophy, no edema, no contractures Neuro: CN II-XI grossly intact, no focal neuro deficits Psych: Alert, oriented to self and hospital, appropriate affect Assessment/plan: Severe Sepsis E. Coli urinary tract infection Stage II pressure ulcer of the coccyx, with drainage and surrounding cellulitis Dehydration - IVF completed - rocephin, ABX D #6 - blood culture and urine cultures pending - off load and barrier cream - wound care recs - PT/OT evaluation Acute toxic encephalopathy ruled out suspected neurocognitive disorder ETOH misuse Confabulation Hoarding behaviours - thiamine and foliac aid, MVI - no ativan at this time. - concern for korsakoff. - neuro and psych recs appreciated - MRI: small vessel ischemic changes Severe protein calorie malnutrition -Dietary consultation -Ensure Social Stressors - per nursing house has been condemned and patient cannot return. Hypokalemia, hypomagnesemia, Recurrent - replace and recheck in AM Transaminitis, resolved DVT prophylaxis: Lovenox Discussed with: Patient, nursing, social work Anticipated discharge: in am, once auth obtained Anticipated discharge place: SNF A total of 35 minutes was spent on the care of this complex patient more than 50% of the time was spent in counseling and care coordination. Active Medications Generic Name Dose Route Start Last Admin Trade Name Freq PRN Reason Stop Dose Admin Acetaminophen 650 mg 11/17/21 17:59 11/19/21 07:45 Acetaminophen Tab 325 Mg Tab PO 650 mg Q6HR PRN Administration Mild Pain or Fever > 100.5 Hydrocodone Bitart/Acetaminophen 1 each 11/17/21 18:29 Hydrocodone/Apap 5-325mg 1 Each Tab PO Q4HR PRN Moderate Pain Enoxaparin Sodium 40 mg 11/18/21 09:00 11/22/21 07:21 Enoxaparin 40 Mg/0.4 Ml Syringe SQ 40 mg DAILY ALICIA Administration Folic Acid 1 mg 11/18/21 11:30 11/22/21 07:19 Folic Acid 1 Mg Tab PO 1 mg DAILY ALICIA Administration Gabapentin 100 mg 11/21/21 11:00 11/22/21 15:41 Gabapentin 100 Mg Cap PO 100 mg TID ALICIA Administration Cefazolin Sodium 1,000 mg/ 50 mls @ 100 mls/hr 11/21/21 00:00 11/22/21 15:41 Sodium Chloride IVPB 100 mls/hr Q8HR ALICIA Administration Protocol Lorazepam 0.5 mg 11/17/21 18:29 11/20/21 16:46 Lorazepam 2 Mg/Ml Inj IV 0.5 mg Q6HR PRN Administration Anxiety Melatonin 3 mg 11/17/21 18:29 Melatonin 3 Mg Tablet PO HS PRN Insomnia Multi-Ingred Cream/Lotion/Oil/Oint 1 applic 11/20/21 11:15 11/22/21 07:26 Hydrophilic Cream 180 Gm Tube TOPICAL 1 applic DAILY ALICIA Administration Protocol Multivitamins 1 each 11/18/21 11:30 11/22/21 07:20 Multivitamins, Thera 1 Each Tab PO 1 each DAILY ALICIA Administration Naloxone HCl 0.2 mg 11/17/21 17:59 Naloxone 0.4 Mg/Ml 1 Ml Vial IV Q2M PRN Opioid Reversal Ondansetron HCl 4 mg 11/17/21 18:29 Ondansetron 4 Mg/2 Ml Vial IVP Q8HR PRN Nausea And Vomiting Quetiapine Fumarate 25 mg 11/20/21 21:00 11/21/21 21:48 Quetiapine 25 Mg Tab PO 25 mg HS ALICIA Administration Thiamine HCl 100 mg 11/18/21 11:30 11/22/21 07:20 Thiamine 100 Mg/Ml 2 Ml Vial IVP 100 mg Q12HR ALICIA Administration Objective - Vital Signs Vital signs: Vital Signs Temp 98.5 F 11/22/21 14:00 Pulse 113 H 11/22/21 14:00 Resp 18 11/22/21 14:00 BP 90/63 11/22/21 14:00 Pulse Ox 97 11/22/21 14:00 Intake & Output 11/21/21 11/22/21 11/22/21 18:59 06:59 18:59 Output Total 2 1500 Balance -2 -1500 Output: Urine 1500 Stool 2 Other: Voiding Method Incontinent Incontinent Incontinent External Catheter External Catheter External Catheter # Bowel Movements 0 1 - Labs CBC & Chem 7: 11/22/21 04:11 11/22/21 04:11 Labs: Abnormal Lab Results - Last 24 Hours (Table) 11/22/21 11/22/21 11/22/21 Range/Units 00:43 04:11 04:11 RBC 3.01 L (3.80-5.40) m/uL MCV 122.9 H (80.0-100.0) fL MCH 38.7 H (25.0-35.0) pg RDW 16.1 H (11.5-15.5) % Macrocytosis Marked A Sodium 136 L (137-145) mmol/L Potassium 3.3 L (3.5-5.1) mmol/L Glucose 120 H (74-99) mg/dL POC Glucose (mg/dL) 172 H (75-99) mg/dL Calcium 8.2 L (8.4-10.2) mg/dL Magnesium 2.8 H (1.6-2.3) mg/dL AST 67 H (14-36) U/L ALT 37 H (4-34) U/L Total Protein 5.8 L (6.3-8.2) g/dL Albumin 2.8 L (3.5-5.0) g/dL Microbiology - Last 24 Hours (Table) 11/17/21 16:55 Blood Culture - Preliminary Blood No Growth after 96 hours 11/17/21 16:35 Blood Culture - Preliminary Blood No Growth after 96 hours
[2021-11-22] MEDS: QUEtiapine 25 MG TAB PO SCH (20:56)
[2021-11-23 05:56] LABS: Anisocytosis Slight; HCT 33.5 % (34.0-46.0); HGB 10.7 gm/dL (11.4-16.0); Hypochromasia Slight; MCH 39.3 pg (25.0-35.0); MCHC 31.9 g/dL (31.0-37.0); MCV 123.3 fL (80.0-100.0); Macrocytosis Marked; Mean Platelet Volume 8.1; Platelet Count 228 k/uL (150-450); RBC 2.72 m/uL (3.80-5.40); RDW 16.3 % (11.5-15.5); WBC 6.7 k/uL (3.8-10.6)
[2021-11-23] MEDS: ACETAMINOPHEN TAB 325 MG TAB PO PRN (06:17)
[2021-11-23 06:34] LABS: ALT 33 U/L (4-34); AST 60 U/L (14-36); African American GFR (CKD) >90 (>60 ml/min/1.73 sqM); Albumin 2.7 g/dL (3.5-5.0); Albumin/Globulin Ratio 0.9; Alkaline Phosphatase 90 U/L (38-126); Anion Gap 3 mmol/L; Blood Urea Nitrogen 11 mg/dL (7-17); Calcium 8.5 mg/dL (8.4-10.2); Carbon Dioxide 27 mmol/L (22-30); Chloride 106 mmol/L (98-107); Globulin 3.1 g/dL; Glucose 131 mg/dL (74-99); Magnesium 1.3 mg/dL (1.6-2.3); Non-African American GFR(CKD) >90 (>60 ml/min/1.73 sqM); Phosphorus 2.3 mg/dL (2.5-4.5); Potassium 4.3 mmol/L (3.5-5.1); Sodium 136 mmol/L (137-145); Total Bilirubin 0.6 mg/dL (0.2-1.3); Total Protein 5.8 g/dL (6.3-8.2)
[2021-11-23] MEDS: MULTIVITAMINS, THERA 1 EACH TAB PO SCH (08:08)
[2021-11-23] MEDS: FOLIC ACID 1 MG TAB PO SCH (08:08)
[2021-11-23] MEDS: GABAPENTIN 100 MG CAP PO SCH ×3 (08:08→20:54)
[2021-11-23] MEDS: ENOXAPARIN 40 MG/0.4 ML SYRINGE SQ SCH (08:08)
[2021-11-23] MEDS: HYDROPHILIC CREAM 180 GM TUBE TOPICAL SCH (08:09)
[2021-11-23] MEDS: THIAMINE 100 MG/ML 2 ML VIAL IVP SCH ×2 (08:37→20:54)
--- NOTE | 2021-11-23 13:12 | P.PN ---
Subjective Progress Note Date: 11/23/21 Hospital course: Patient is a 61-year-old female with an uncertain past medical history that was brought in by EMS for altered mentation. Neighbors called for a well check due to the odor coming from her apartment and her not having been outside in months as well as her not having been to work in months. On arrival of EMS, fire, and police they reportedly found the apartment to be in disarray and had to shovel their way to the patient secondary to reports of 2-3 feet of garbage. They did find her seated in a chair and appeared to have alteration in mental status. She was transported to the emergency department where she underwent an extensive evaluation. On arrival she was tachycardic with a pulse of 106. White blood cell count 20.5, potassium 3, lactic acid 4.8, bilirubin 2.8, AST 55, anion gap 23 with a carbon dioxide of 15. Urinalysis was cloudy with 59 white blood cells. Influenza, RSV, and COVID-19 testing was negative. Urine drug screen and serum alcohol is negative. CT head shows no acute intracranial hemorrhage or midline shift with mild to moderate diffuse age-related cerebral atrophy. Chest x-ray revealed no acute process. She was started on Rocephin for possible urinary tract infection as well as IV fluids. She was seen by neurology for possible Korsakoff syndrome and underwent an EEG which was negative for signs of seizure activity. MRI of the brain was then completed revealing white matter i schemic changes. She was then seen by psychiatry and started on Seroquel and determined patient has not of sound mind and does not have decision-making capacity at this time. Leukocytosis resolved. Patient continued to have persistent hypomagnesemia throughout hospitalization and replaced as needed. Urinalysis was positive for E. coli. Patient completed 7 day course of antibiotics for treatment of E. coli UTI. Blood cultures showing no growth after 120 hours.patient is medically stable and plan is for discharge to [facility] and currently awaiting insurance authorization. Physical examination: Patient seen and examined at bedside. She was awake and alert in alert to person, place, and time slightly confused to situation. Patient was updated that she will be going to a senior care facility at time of discharge. Patient states that she would like to return to her home as she has her own apartment and would like to live by herself. Had discussion with patient that she requires some assistance at this time to make sure that she is 100% capable of caring for herself upon discharge to ensure her safety. Patient verbalized understanding. She denied having any complaints or concerns at this time. She will receive final dose of antibiotics for treatment of her E. coli UTI this afternoon and this will complete 7 day course. Plan is for patient to be discharged to [facility] once insurance authorization is obtained. General: non toxic, no distress, appears older than stated age, very thin/he may seated appearance with muscle wasting, disheveled Derm: warm, dry Head: atraumatic, normocephalic, symmetric Eyes: EOMI, no lid lag, anicteric sclera Mouth: no lip lesion, mucus membranes moist Cardiovascular: S1S2 reg, no murmur, positive posterior tibial pulse bilateral, Lungs: Coarse breath sounds bilateral, no rhonchi, no rales , no accessory muscle use Abdominal: soft, nontender to palpation, no guarding, no appreciable organomegaly Ext: no gross muscle atrophy, no edema, no contractures Neuro: CN II-XI grossly intact, no focal neuro deficits Psych: Alert, oriented to self and hospital, appropriate affect Assessment and Plan of Care: Severe Sepsis E. Coli urinary tract infection Severe sepsis secondary to above Stage II pressure ulcer of the coccyx, with drainage and surrounding cellulitis Dehydration - IVF completed -Patient to receive final dose of antibiotics later this afternoon and was remarkable for an of 7 day course of antibiotics for treatment of E. coli UTI. -Urine culture was positive for E. coli. -Blood cultures showing no growth after 120 hours. -Encourage patient to Turn every 2 hours and off load as much as possible with use of barrier cream -Wound care recs - PT/OT Acute toxic encephalopathy ruled out suspected neurocognitive disorder ETOH misuse Confabulation Hoarding behaviours - thiamine and foliac aid, MVI - no ativan at this time. - concern for korsakoff. - neuro and psych recs appreciated - MRI: small vessel ischemic changes Severe protein calorie malnutrition -Dietary consultation -Ensure Social Stressors - per nursing house has been condemned and patient cannot return. Hypokalemia, resolved Hypomagnesemia, Recurrent and will likely be discharged on daily oral magnesium supplement - replace and recheck in AM Transaminitis, resolved DVT prophylaxis: Lovenox Discussed with: Patient, nursing, social work Anticipated discharge: Patient is medically stable for discharge pending insurance authorization. Anticipated discharge place: [facility] once insurance authorization is obtained A total of 35 minutes was spent on the care of this complex patient more than 50% of the time was spent in counseling and care coordination. Objective - Vital Signs Vital signs: Vital Signs Temp 97.9 F 11/23/21 08:00 Pulse 126 H 11/23/21 08:00 Resp 16 11/23/21 02:43 BP 159/113 11/23/21 08:00 Pulse Ox 97 11/23/21 08:00 Intake & Output 11/22/21 11/23/21 11/23/21 18:59 06:59 18:59 Intake Total 1270 Output Total 900 Balance 370 Intake: Oral 1270 Output: Urine 900 Other: Voiding Method Incontinent Bedside Commode Bedside Commode External Catheter Incontinent Incontinent # Voids 1 4 1 # Bowel Movements 1 2 1 - Labs CBC & Chem 7: 11/23/21 05:14 11/23/21 05:14 Labs: Abnormal Lab Results - Last 24 Hours (Table) 11/23/21 11/23/21 Range/Units 05:14 05:14 RBC 2.72 L (3.80-5.40) m/uL Hgb 10.7 L (11.4-16.0) gm/dL Hct 33.5 L (34.0-46.0) % MCV 123.3 H (80.0-100.0) fL MCH 39.3 H (25.0-35.0) pg RDW 16.3 H (11.5-15.5) % Macrocytosis Marked A Sodium 136 L (137-145) mmol/L Creatinine 0.41 L (0.52-1.04) mg/dL Glucose 131 H (74-99) mg/dL Phosphorus 2.3 L (2.5-4.5) mg/dL Magnesium 1.3 L (1.6-2.3) mg/dL AST 60 H (14-36) U/L Total Protein 5.8 L (6.3-8.2) g/dL Albumin 2.7 L (3.5-5.0) g/dL Microbiology - Last 24 Hours (Table) 11/17/21 16:55 Blood Culture - Preliminary Blood No Growth after 120 hours 11/17/21 16:35 Blood Culture - Preliminary Blood No Growth after 120 hours
[2021-11-23] MEDS: MAGNESIUM SULFATE-D5W PMX 1 GM in DEXTROSE/WATER 1 100ML.BAG IVPB SCH ×3 (16:38→19:15)
[2021-11-23] MEDS: QUEtiapine 25 MG TAB PO SCH (20:54)
[2021-11-24] MEDS: THIAMINE 100 MG/ML 2 ML VIAL IVP SCH ×2 (08:00→21:14)
[2021-11-24] MEDS: ENOXAPARIN 40 MG/0.4 ML SYRINGE SQ SCH (09:05)
[2021-11-24] MEDS: HYDROPHILIC CREAM 180 GM TUBE TOPICAL SCH (09:07)
[2021-11-24] MEDS: FOLIC ACID 1 MG TAB PO SCH (09:07)
[2021-11-24] MEDS: GABAPENTIN 100 MG CAP PO SCH ×3 (09:07→21:03)
[2021-11-24] MEDS: MULTIVITAMINS, THERA 1 EACH TAB PO SCH (09:07)
--- NOTE | 2021-11-24 13:54 | P.DS ---
Providers Date of admission: 11/17/21 17:59 Expected date of discharge: 11/24/21 Attending physician: Mounika Landry DO Consults: 11/18/21 15:45 Consult Physician Routine Consulting Provider: Heike Dodd Consult Reason/Comments: confusion/ Korsakoff? Do you want consulting provider notified?: Yes 11/19/21 18:15 Consult Physician Routine Consulting Provider: Sharad Sanders Consult Reason/Comments: hording Do you want consulting provider notified?: Yes Primary care physician: Stated None Hospital Course: Discharge Diagnosis: E. Coli urinary tract infection, completed 7 day course of IV antibiotics on 11/23/21 Severe sepsis secondary to above Stage II pressure ulcer of the coccyx, with drainage and surrounding cellulitis, continue use of barrier cream and recommend offloading Dehydration, resolved after IV fluid hydration Acute toxic encephalopathy ruled out suspected neurocognitive disorder ETOH misuse, recommend total cessation of alcohol use and continuation of thiamine and foliac aid, MVI Confabulation Hoarding behaviours Severe protein calorie malnutrition, recommend continuing ensure Social Stressors Hypokalemia, resolved Hypomagnesemia, Recurrent and discharged on daily oral magnesium supplement and to have repeat labs drawn in 3 days Transaminitis, resolved Hospital Course: Patient is a 61-year-old female with an uncertain past medical history that was brought in by EMS for altered mentation. Neighbors called for a well check due to the odor coming from her apartment and her not having been outside in months as well as her not having been to work in months. On arrival of EMS, fire, and police they reportedly found the apartment to be in disarray and had to shovel their way to the patient secondary to reports of 2-3 feet of garbage. They did find her seated in a chair and appeared to have alteration in mental status. She was transported to the emergency department where she underwent an extensive evaluation. On arrival she was tachycardic with a pulse of 106. White blood cell count 20.5, potassium 3, lactic acid 4.8, bilirubin 2.8, AST 55, anion gap 23 with a carbon dioxide of 15. Urinalysis was cloudy with 59 white blood cells. Influenza, RSV, and COVID-19 testing was negative. Urine drug screen and serum alcohol is negative. CT head shows no acute intracranial hemorrhage or midline shift with mild to moderate diffuse age-related cerebral atrophy. Chest x-ray revealed no acute process. She was started on Rocephin for possible urinary tract infection as well as IV fluids. She was seen by neurology for possible Korsakoff syndrome and underwent an EEG which was negative for signs of seizure activity. MRI of the brain was then completed revealing white matter ischemic changes. She was then seen by psychiatry and started on Seroquel and determined patient has not of sound mind and does not have decision-making capacity at this time. Leukocytosis resolved. Patient continued to have persistent hypomagnesemia throughout hospitalization and replaced as needed. Urinalysis was positive for E. coli. Patient completed 7 day course of antibiotics for treatment of E. coli UTI. Blood cultures showed no growth after 120 hours. Patient is medically stable and plan is for discharge to [facility] and currently awaiting insurance authorization. Physical examination: General: non toxic, no distress, appears older than stated age, very thin/he may seated appearance with muscle wasting, disheveled Derm: warm, dry Head: atraumatic, normocephalic, symmetric Eyes: EOMI, no lid lag, anicteric sclera Mouth: no lip lesion, mucus membranes moist Cardiovascular: S1S2 reg, no murmur, positive posterior tibial pulse bilateral, Lungs: Coarse breath sounds bilateral, no rhonchi, no rales , no accessory muscle use Abdominal: soft, nontender to palpation, no guarding, no appreciable organomegaly Ext: no gross muscle atrophy, no edema, no contractures Neuro: CN II-XI grossly intact, no focal neuro deficits Psych: Alert, oriented to self and hospital, appropriate affect A total of 38 minutes of time were spent preparing this complex discharge summary. Pt was discharged on 11/24/21 at 9:45 AM Patient Condition at Discharge: Fair Plan - Discharge Summary New Discharge Prescriptions: New Acetaminophen Tab [Tylenol] 650 mg PO Q6HR PRN tab PRN Reason: Mild Pain Or Fever > 100.5 Thiamine [Vitamin B-1] 100 mg PO DAILY 30 Days #30 tablet Magnesium Oxide [Mag-Ox] 400 mg PO DAILY 30 Days #30 tablet Folic Acid 1 mg PO DAILY tab Melatonin 3 mg PO HS PRN tablet PRN Reason: Insomnia Multivitamins, Thera [Multivitamin (formulary)] 1 each PO DAILY tab Gabapentin [Neurontin] 100 mg PO TID 3 Days #9 cap QUEtiapine [SEROquel] 25 mg PO HS tab Discharge Medication List Acetaminophen Tab [Tylenol] 650 mg PO Q6HR PRN tab 11/24/21 [Rx] Folic Acid 1 mg PO DAILY tab 11/24/21 [Rx] Gabapentin [Neurontin] 100 mg PO TID 3 Days #9 cap 11/24/21 [Rx] Magnesium Oxide [Mag-Ox] 400 mg PO DAILY 30 Days #30 tablet 11/24/21 [Rx] Melatonin 3 mg PO HS PRN tablet 11/24/21 [Rx] Multivitamins, Thera [Multivitamin (formulary)] 1 each PO DAILY tab 11/24/21 [Rx] QUEtiapine [SEROquel] 25 mg PO HS tab 11/24/21 [Rx] Thiamine [Vitamin B-1] 100 mg PO DAILY 30 Days #30 tablet 11/24/21 [Rx] Follow up Appointment(s)/Referral(s): Reji Ca [STAFF PHYSICIAN] - 1 Week Ambulatory/Diagnostic Orders: Basic Metabolic Panel [LAB.AMB] Location: None Selected Magnesium [LAB.AMB] Time Frame: 3 Days, Location: None Selected Discharge Disposition: TRANSFER TO SNF/ECF
[2021-11-24] MEDS: MAGNESIUM SULFATE-D5W PMX 1 GM in DEXTROSE/WATER 1 100ML.BAG IVPB SCH ×4 (15:08→21:14)
--- NOTE | 2021-11-24 16:50 | P.PN ---
Subjective Progress Note Date: 11/24/21 11/24/2021: Patient states "I don't know why I'm here". She does not remember how she got here. She inquires "was I in an accident". Patient denies headache at this time. She does get occasional headaches which are intense but nothing now. Patient at present trying to use the remote as a hospital phone. She states I'm very nervous, scared. Patient states she has had a house. Most of the time son lives with her. I spoke to patient's son came on the phone. Spent 20 minutes on the phone with him. He informed me that patient has struggled with drinking at least half of his life. He is 34 years of age. She was having difficulty keeping her jobs and relations because of drinking. Once she got job at [employer] in 2016, she was not drinking as much. However she did have an episode of binge drinking after she was broken with her cat. When he went in, the house was full of empty alcohol bottles. In other words it appears patient does have significant history of drinking although she has always minimized alcohol use when asked directly to her. He agreed that patient's memory has not been very good either. It also appears that patient has not been very close to either of her children. They do see the patient often, but not very often. 11/21/2021: Patient laying comfortably in the bed. She appears somewhat anxious. Patient states her memory is getting better. Patient states she is concerned that she just wet her diaper. Denies any headache or any focal symptoms. 11/20/2021: Patient initially seen by Dr. Dodd. Please refer to her note for details. Patient has altered mental status, suspected toxic metabolic encephalopathy versus Korsakoff syndrome. She does have history of alcohol use. Patient states that she came to the hospital where she will felt disoriented, shaky, "out of sorts". She has not been eating, lives by herself. She has 2 children in their names is Johan and Enriqueta, who live not too far in visits her frequently. She says that she doesn't drink alcohol every day. Sometimes she drinks "little too much". This she refers to drinking water, 2-5 drinks, but not very often. She says that she only drinks when it suits her, like in social occasion. Does not go to the bar, does not drink and home alone. Not every day. Denies any headache at this time. No dizziness, nausea vomiting, abdominal pain or diarrhea. Patient could not tell me when this altered mental status started. Patient says that she does not have any altered mental status, just some day she does not sleep much, and she does not function as well. Psychiatry has seen the patient, who has noted that patient's insight is bed, uncertain if she is any underlying cognitive dysfunction. She is not delirious. He is recommending long term care social worker consultation about home situation, if she is able to take care of herself. He doesn't believe that patient has capacity to make decisions. Objective - Vital Signs Vital signs: Vital Signs Temp 98.5 F 11/24/21 14:00 Pulse 76 11/24/21 14:00 Resp 16 11/24/21 14:00 BP 91/61 11/24/21 14:00 Pulse Ox 94 L 11/24/21 14:00 Intake & Output 11/23/21 11/24/21 11/24/21 18:59 06:59 18:59 Output Total 4 Balance -4 Output: Stool 4 Other: Voiding Method Bedside Commode Bedside Commode Bedside Commode Incontinent Incontinent Incontinent # Voids 2 6 1 # Bowel Movements 1 2 1 - Exam Patient is alert and awake. Patient knows it is the month of November but could not tell the year. She knows that she is in [facility] in [facility]. She could not tell name of the current president, states is John. Speech and language functions are normal. No aphasia or dysarthria. Pupils are equal, round and reacting visual haney are full, face is symmetric. Extraocular muscles are intact with slight nystagmus. Tongue protrudes the midline. Muscle strength is normal in the arms and legs. Patient has mild clumsiness for [id number] testing but no obvious ataxia. Tone and bulk of muscles normal. Patient has negative palmomental reflex, negative visuospatial apraxia. Gait deferred. Sensations equal. - Labs CBC & Chem 7: 11/23/21 05:14 11/23/21 05:14 Labs: Abnormal Lab Results - Last 24 Hours (Table) 11/24/21 Range/Units 10:14 Magnesium 1.3 L (1.6-2.3) mg/dL Microbiology - Last 24 Hours (Table) 11/17/21 16:55 Blood Culture - Final Blood No Growth after 144 hours 11/17/21 16:35 Blood Culture - Final Blood No Growth after 144 hours Assessment and Plan Assessment: 1. Memory loss, likely due to alcoholism, rule out underlying cognitive impairment. Rule out Korsakoff syndrome, encephalopathy from UTI versus psychiatric condition. Serum thiamine level is normal. 2. Reported sacral decubitus ulcer 3. Hypokalemia on admission Plan: 1. EEG was performed, which revealed no epileptiform activity. No significant abnormality noted. Study was technically limited because of excessive myogenic activity in bitemporal region. 2. Psych consult input appreciated. Psychiatry is planning to Start her on Seroquel. 3. B12 495, folate 11.6, TSH 1.89, thiamine level 89 normal. 4. MRI brain revealed no evidence of intracranial mass, acute or subacute infarct. Scattered white matter changes that are nonspecific and likely secon dori to small vessel ischemic disease. I personally reviewed MRI of the brain agree with the findings. 5. Your treatment of the infection related to bladder and wounds. 6. I had a very prolonged discussion with patient's son as mentioned above. Spent 20 minutes on the phone. It appears patient does have significant history of alcoholism. I recommended him to have patient follow up with neurologist as an outpatient to evaluate for possible underlying cognitive impairment. She may benefit from neuropsychological testing, and if abnormal, from cognitive enhancing medication. Neurologically clear otherwise. Time with Patient: Greater than 30 (Greater than 50% spent in coordinating care with patient's son.)
[2021-11-24] MEDS: QUEtiapine 25 MG TAB PO SCH (21:03)
[2021-11-25] MEDS: FOLIC ACID 1 MG TAB PO SCH (07:14)
[2021-11-25] MEDS: ENOXAPARIN 40 MG/0.4 ML SYRINGE SQ SCH (07:14)
[2021-11-25] MEDS: GABAPENTIN 100 MG CAP PO SCH (07:14)
[2021-11-25] MEDS: HYDROPHILIC CREAM 180 GM TUBE TOPICAL SCH (07:14)
[2021-11-25] MEDS: MULTIVITAMINS, THERA 1 EACH TAB PO SCH (07:14)
[2021-11-25 09:47] VITALS: BP 128/80; PULSE 97; RESP 16; TEMP 97.9
[2021-11-25] MEDS: THIAMINE 100 MG/ML 2 ML VIAL IVP SCH (10:01)
--- NOTE | 2021-11-25 10:37 | P.DS ---
Providers Date of admission: 11/17/21 17:59 Expected date of discharge: 11/25/21 Attending physician: Mounika Landry DO Consults: 11/18/21 15:45 Consult Physician Routine Consulting Provider: Heike Dodd Consult Reason/Comments: confusion/ Korsakoff? Do you want consulting provider notified?: Yes 11/19/21 18:15 Consult Physician Routine Consulting Provider: Sharad Sanders Consult Reason/Comments: hording Do you want consulting provider notified?: Yes Primary care physician: Stated None Hospital Course: Discharge Diagnosis: E. Coli urinary tract infection, completed 7 day course of IV antibiotics on 11/23/21 Severe sepsis secondary to above Stage II pressure ulcer of the coccyx, with drainage and surrounding cellulitis, continue use of barrier cream and recommend offloading Dehydration, resolved after IV fluid hydration Acute toxic encephalopathy ruled out suspected neurocognitive disorder ETOH misuse, recommend total cessation of alcohol use and continuation of thiamine and foliac aid, MVI Confabulation Hoarding behaviours Severe protein calorie malnutrition, recommend continuing ensure Social Stressors Hypokalemia, resolved Hypomagnesemia, Recurrent and discharged on daily oral magnesium supplement and to have repeat labs drawn in 3 days Transaminitis, resolved Hospital Course: Patient is a 61-year-old female with an uncertain past medical history that was brought in by EMS for altered mentation. Neighbors called for a well check due to the odor coming from her apartment and her not having been outside in months as well as her not having been to work in months. On arrival of EMS, fire, and police they reportedly found the apartment to be in disarray and had to shovel their way to the patient secondary to reports of 2-3 feet of garbage. They did find her seated in a chair and appeared to have alteration in mental status. She was transported to the emergency department where she underwent an extensive evaluation. On arrival she was tachycardic with a pulse of 106. White blood cell count 20.5, potassium 3, lactic acid 4.8, bilirubin 2.8, AST 55, anion gap 23 with a carbon dioxide of 15. Urinalysis was cloudy with 59 white blood cells. Influenza, RSV, and COVID-19 testing was negative. Urine drug screen and serum alcohol is negative. CT head shows no acute intracranial hemorrhage or midline shift with mild to moderate diffuse age-related cerebral atrophy. Chest x-ray revealed no acute process. She was started on Rocephin for possible urinary tract infection as well as IV fluids. She was seen by neurology for possible Korsakoff syndrome and underwent an EEG which was negative for signs of seizure activity. MRI of the brain was then completed revealing white matter ischemic changes. She was then seen by psychiatry and started on Seroquel and determined patient has not of sound mind and does not have decision-making capacity at this time. Leukocytosis resolved. Patient continued to have persistent hypomagnesemia throughout hospitalization and replaced as needed. Urinalysis was positive for E. coli. Patient completed 7 day course of antibiotics for treatment of E. coli UTI. Blood cultures showed no growth after 120 hours. Patient is medically stable and plan is for discharge to [facility]. Her discharge was held on 11/24/2021 due to pending insurance authorization. She was subsequently discharged on 11/25/2021. Physical examination: General: non toxic, no distress, disheveled Derm: warm, dry Head: atraumatic, normocephalic, symmetric Eyes: EOMI, no lid lag, anicteric sclera Mouth: no lip lesion, mucus membranes moist Cardiovascular: S1S2 reg, no murmur Lungs: Coarse breath sounds bilateral, no rhonchi, no rales , no accessory muscle use Abdominal: soft, nontender to palpation, no guarding, no appreciable organom egaly Ext: no gross muscle atrophy, no edema, no contractures Neuro: no focal neuro deficits Psych: Alert, oriented to self and hospital, appropriate affect This complex discharge took about 45 minutes to complete.. Patient was discharged on 11/25/21 at 10:32 AM Pertinent Studies: Brain CT Chest X Ray CT abdomen and pelvis EEG Brain MRI Patient Condition at Discharge: Stable Plan - Discharge Summary New Discharge Prescriptions: New Acetaminophen Tab [Tylenol] 650 mg PO Q6HR PRN tab PRN Reason: Mild Pain Or Fever > 100.5 Thiamine [Vitamin B-1] 100 mg PO DAILY 30 Days #30 tablet Magnesium Oxide [Mag-Ox] 400 mg PO DAILY 30 Days #30 tablet Folic Acid 1 mg PO DAILY tab Melatonin 3 mg PO HS PRN tablet PRN Reason: Insomnia Multivitamins, Thera [Multivitamin (formulary)] 1 each PO DAILY tab Gabapentin [Neurontin] 100 mg PO TID 3 Days #9 cap QUEtiapine [SEROquel] 25 mg PO HS tab Discharge Medication List Acetaminophen Tab [Tylenol] 650 mg PO Q6HR PRN tab 11/24/21 [Rx] Folic Acid 1 mg PO DAILY tab 11/24/21 [Rx] Gabapentin [Neurontin] 100 mg PO TID 3 Days #9 cap 11/24/21 [Rx] Magnesium Oxide [Mag-Ox] 400 mg PO DAILY 30 Days #30 tablet 11/24/21 [Rx] Melatonin 3 mg PO HS PRN tablet 11/24/21 [Rx] Multivitamins, Thera [Multivitamin (formulary)] 1 each PO DAILY tab 11/24/21 [Rx] QUEtiapine [SEROquel] 25 mg PO HS tab 11/24/21 [Rx] Thiamine [Vitamin B-1] 100 mg PO DAILY 30 Days #30 tablet 11/24/21 [Rx] Follow up Appointment(s)/Referral(s): Reji Ca [STAFF PHYSICIAN] - 1 Week Ambulatory/Diagnostic Orders: Basic Metabolic Panel [LAB.AMB] Location: None Selected Magnesium [LAB.AMB] Time Frame: 3 Days, Location: None Selected Discharge Disposition: TRANSFER TO SNF/ECF
== END 2021-11-25 11:41 | DRG 871 ==
LOC: EC 13:11 → 4SSUR 17:59
PROVIDERS: ADMIT Internal Medicine; ATTEND Internal Medicine
DX: A41.51 Sepsis due to Escherichia coli [E. coli] (principal); E43 Unspecified severe protein-calorie malnutrition; G92.9 Unspecified toxic encephalopathy; F05 Delirium due to known physiological condition; E87.2 Acidosis; L03.818 Cellulitis of other sites; N39.0 Urinary tract infection, site not specified; Z68.1 Body mass index [BMI] 19.9 or less, adult; R62.7 Adult failure to thrive; L89.152 Pressure ulcer of sacral region, stage 2; K70.10 Alcoholic hepatitis without ascites; L89.611 Pressure ulcer of right heel, stage 1; L89.621 Pressure ulcer of left heel, stage 1; R65.20 Severe sepsis without septic shock; G31.89 Other specified degenerative diseases of nervous system; Z20.822 Contact with and (suspected) exposure to COVID-19; E83.42 Hypomagnesemia; E86.0 Dehydration; E87.6 Hypokalemia; F10.20 Alcohol dependence, uncomplicated; F32.A Depression, unspecified; F41.9 Anxiety disorder, unspecified; F42.3 Hoarding disorder; G47.00 Insomnia, unspecified; I10 Essential (primary) hypertension; Z87.891 Personal history of nicotine dependence
CPT/HCPCS: 36415; 70450; 70551; 71046; 74176; 80051; 80053; 80306; 80320; 81001; 82140; 82550; 82607; 82746; 83605; 83735; 84100; 84425; 84443; 84484; 85025; 85027; 85610; 85730; 87040; 87077; 87086; 87186; 87324; 87636; 93005; 95816; 96361; 96374; 99285